=== PATIENT | female | born 1955 | race Hispanic/Latino ===

== ENCOUNTER 2018-04-30 08:14 | Outpatient (CLI) | payer OTHER | END 2018-04-30 08:15 | disposition home or self-care (01) | LOC: RAD 08:14 ==

== ENCOUNTER 2018-05-19 08:18 | Outpatient (CLI) | payer OTHER | END 2018-05-19 08:19 | disposition home or self-care (01) | LOC: LAB 08:18 | DX: Z00.00 Encounter for general adult medical examination without abnormal findings (principal) ==

== ENCOUNTER 2018-05-28 07:47 | Outpatient (CLI) | payer OTHER | END 2018-05-28 07:48 | disposition home or self-care (01) | LOC: RAD 07:47 ==

== ENCOUNTER 2018-06-04 08:19 | Outpatient (CLI) | payer OTHER | END 2018-06-04 08:20 | disposition home or self-care (01) | LOC: RAD 08:19 ==

== ENCOUNTER 2018-07-21 07:42 | Outpatient (CLI) | payer OTHER | END 2018-07-21 07:43 | disposition home or self-care (01) | LOC: PAT 07:42 ==

== ENCOUNTER 2018-07-21 07:48 | Outpatient (CLI) | payer OTHER | END 2018-07-21 07:49 | disposition home or self-care (01) | LOC: CARDIO 07:48 ==

== ENCOUNTER 2018-08-10 06:12 | Inpatient (IN) | payer OTHER, MEDICARE ==
[2018-07-21 08:36] VITALS: BMI 36.6
[2018-08-10] MEDS ORDERED: Vancomycin 1 g Inj ONE (07:19)
[2018-08-10] MEDS ORDERED: Bupivacaine 0.5% 50 ML IJ ONE (07:19)
[2018-08-10] MEDS ORDERED: Tranexamic Acid 1 ML ONE ×2 (07:39→10:44)
[2018-08-10] MEDS ORDERED: Propofol 10 mg/ml Inj (20 ML) ONE (07:41)
[2018-08-10] MEDS ORDERED: Midazolam 2 MG/2 ML VIAL ONE (07:41)
[2018-08-10] MEDS ORDERED: Rocuronium 10 mg/ml (5 ml) ONE (07:47)
[2018-08-10] MEDS ORDERED: Bupivacaine Liposomal Inj 20 ml ONE (09:36)
[2018-08-10] MEDS ORDERED: Sodium Chloride 0.9% 20 ML IV ONE (09:41)
[2018-08-10] MEDS ORDERED: EPINEPHrine 1:1000 Nasal Sol(30mL) ONE (09:41)
[2018-08-10] MEDS ORDERED: Morphine 4 mg/ml ISec ONE (10:11)
[2018-08-10] MEDS ORDERED: Neostigmine Methylsulfate 3mg/3ml Syringe IV ONE (10:28)
[2018-08-10] MEDS ORDERED: Bupivacaine/Epi 0.25%-1:200,000 10 ml PF inj IJ ONE ×2 (11:31→11:32)
[2018-08-10] MEDS ORDERED: HYDROmorphone 0.5 mg/0.5 ml ISec IVP PRN (11:44)
[2018-08-10] MEDS ORDERED: Lactated Ringer's 1,000 ML IV SCH (11:45)
--- NOTE | 2018-08-10 11:47 | PCM.ANESB7 ---
Adductor Canal Block - Adductor Canal Block Date of Procedure: 08/10/18 Anesthiologist: Ayanna Pre-Procedure Diagnosis: Right Osteoarthritis Post-Procedure Diagnosis: Right Osteoarthritis Procedure Performed: Adductor Canal Block Right - Procedure Adductor Canal Block: The procedure was explained to the patient that it is for the post-operative pain management. Consent was obtained after a thorough discussion with the patient regarding the benefits and possible complications of local anesthetic adductor canal block of the femoral nerve. Standard monitors, as defined by the ASA, were applied to the patient. Time-out was held with the circulating nurse to confirm the appropriate block. After applying supplemental oxygen and administering IV Sedation as needed, the patient was placed in supine position with and the operative leg was flexed slightly at the knee and externally rotated as needed, and was kept anatomically stable. The mid-thigh of the lower extremity was exposed. The ultrasound transducer was then applied transversely along the medial aspect, about midway down the thigh and the femoral artery and vein were identified in appropriate relation with the sartorius muscle. At this time, the femoral nerve was visualized lateral to the femoral artery within the canal. After thorough identification, this area area was prepped with Chloroprep solution three times and 1 % Lidocaine was injected subcutaneously for topical anesthesia. At this point, a #22 gauge Stimuplex 4-inch needle was inserted in-plane in a [id number] orientation, and advanced toward the femoral nerve. Advancement was performed carefully under direct ultrasound visualization.. After negative aspiration, _20_cc of __0.25% bupivicaine____was injected. Under ultrasound guidance the local anesthetics were observed spreading around the femoral nerve. The needle was removed intact and sterile dressing was applied. The patient had stable vital signs, was conscious and in no apparent distress.
--- NOTE | 2018-08-10 14:23 | CP.PCM.HP ---
<Wesley Grewal - Last Filed: 08/10/18 14:16> History of Present Illness - History of Present Illness History of Present Illness: Wesley Grewal, PGY-1, Internal Medicine History and Physical for Dr. Ace 63 year old female with past medical history of mediterranean anemia and osteoarthritis presents status post right total knee replacement. Dr. Harris wanted the patient to be admitted for observation and possible admission to TCU. Patient has had a history of severe osteoarthritis and had left total knee placement 12 years ago. Post procedure patient reports mild throbbing pain of right knee but denies headache, fever, chills, chest pain, heart palpitations, shortness of breath, nausea, vomiting, constipation, diarrhea, dysuria, hematuria. 12-point ROS was unremarkable except for what was mentioned above. PMH: as mentioned above PSH: left total knee replacement 12 years ago Allergies: percocet FMhx: Father: CHF SHx: occassional alcohol use, denies history of tobacco or recreational drug use PMD: [place] Home Medications: ibuprofen Present on Admission - Present on Admission Any Indicators Present on Admission: Yes Review of Systems - Review of Systems Review of Systems: except for what was mentioned in HPI Past Patient History - Infectious Disease Hx of Infectious Diseases: None - Past Social History Smoking Status: Never Smoked - CARDIAC Hx Pacemaker: No - PULMONARY Hx Respiratory Disorders: No - NEUROLOGICAL Hx Paralysis: No - HEENT Hx HEENT Problems: No - RENAL Hx Chronic Kidney Disease: No - ENDOCRINE/METABOLIC Hx Endocrine Disorders: No - HEMATOLOGICAL/ONCOLOGICAL Hx Blood Transfusions: No - INTEGUMENTARY Hx Dermatological Problems: No - MUSCULOSKELETAL/RHEUMATOLOGICAL Hx Musculoskeletal Disorders: Yes - GASTROINTESTINAL Hx Gastrointestinal Disorders: No - GENITOURINARY/GYNECOLOGICAL Hx Genitourinary Disorders: No - PSYCHIATRIC Hx Emotional Abuse: No Hx Physical Abuse: No Hx Substance Use: No - SURGICAL HISTORY Hx Surgeries: Yes - ANESTHESIA Hx Anesthesia Reactions: No Hx Malignant Hyperthermia: No Meds Allergies/Adverse Reactions: Allergies Allergy/AdvReac Type Severity Reaction Status Date / Time acetaminophen [From Percocet] AdvReac NAUSEA Verified 08/10/18 12:19 oxycodone HCl [From Percocet] AdvReac NAUSEA Verified 08/10/18 12:19 Physical Exam - Constitutional Appears: Well, Non-toxic, No Acute Distress - Head Exam Head Exam: ATRAUMATIC, NORMAL INSPECTION, NORMOCEPHALIC - Eye Exam Eye Exam: EOMI, PERRL - ENT Exam ENT Exam: Mucous Membranes Moist - Respiratory Exam Respiratory Exam: Clear to Auscultation Bilateral, NORMAL BREATHING PATTERN - Cardiovascular Exam Cardiovascular Exam: REGULAR RHYTHM, RRR, +S1, +S2. absent: Gallop, Rubs, Systolic Murmur - GI/Abdominal Exam GI & Abdominal Exam: Normal Bowel Sounds, Soft. absent: Distended, Tenderness - Extremities Exam Extremities exam: Positive for: pedal pulses present Additional comments: right lower extremity fully wrapped and difficult to evaluate. patient has full ROM of foot and toes on right lower extremity. Left appears to be without any cyanosis or deformities. ROM is intact. - Neurological Exam Neurological exam: Alert, CN II-XII Intact, Normal Gait, Oriented x3 - Psychiatric Exam Psychiatric exam: Normal Affect, Normal Mood - Skin Skin Exam: Dry, Intact, Normal Color Results - Vital Signs Recent Vital Signs: Last Vital Signs Temp 98.2 F 08/10/18 13:03 Pulse 84 08/10/18 13:03 Resp 20 08/10/18 13:03 BP 113/66 08/10/18 13:03 Pulse Ox 97 08/10/18 13:03 - Labs Labs: Laboratory Results - last 24 hr 08/10/18 06:35 Blood Type A POSITIVE Antibody Screen Negative BBK History Checked Patient has bt Assessment & Plan - Assessment and Plan (Free Text) Assessment: 63 year old female with past medical history of mediterranean anemia and osteoarthritis presents status post right total knee replacement. Plan: Status post right knee replacement for osteoarthritis -Started tylenol 975 Q8, codeine 30 Q4PRN, dilaudid 0.5 mg Q4PRN for pain -Emperic therapy via cefazolin 2 doses -Physical therapy has been consulted for further evaluation and disposition recommendations -Continue to apply ice to affected area, drain management, OOB with assistance -Vital signs Q4 -Dr. Harris, Orthopedic Surgery, consulted for further management. Constipation -Started docusate 1 tab QPM Mediterranean anemia -Started ferrous sulfate and folic acid -Will obtain morning CBC GI prophylaxis: pepcid DVT prophylaxis: lovenox Patient plan discussed with Dr. Ace. - Date & Time Date: 08/10/18 Time: 14:25 <Faith Ace R - Last Filed: 08/10/18 16:15> Results - Vital Signs Recent Vital Signs: Last Vital Signs Temp 98.2 F 08/10/18 13:03 Pulse 84 08/10/18 13:03 Resp 20 08/10/18 13:03 BP 113/66 08/10/18 13:03 Pulse Ox 97 08/10/18 13:03 - Labs Labs: Laboratory Results - last 24 hr 08/10/18 06:35 Blood Type A POSITIVE Antibody Screen Negative BBK History Checked Patient has bt Attending/Attestation - Attestation I have personally seen and examined this patient.: Yes I have fully participated in the care of the patient.: Yes I have reviewed all pertinent clinical information: Yes Notes (Text): Patient seen and examined by me with resident at approximately at 1PM on 08/10/18. Case including HPI, physical exam, and assessment and plan discussed with resident. Agree with above with following additions/corrections. Patient is a 63 year old female with past medical history significant for Mediterranean anemia and bilateral knee osteoarthritis that presented to the hospital for scheduled right knee replacement. Patient states that she had left knee replacement approximately 12 years ago. Patient states for approximately the past 2 years, she has been having worsening right knee pain. Patient states that she has been using a cane at home and ambulate. She has tried Aleve and Motrin for pain relief. Patient states that the pain is throbbing and sharp in nature and has worst is an 11 out of 10 on a pain scale 1-10. Patient is status post total right knee replacement. Patient states that she is feeling okay. She denies any current pain in her knee. She is able to wiggle her toes. She denies any numbness or tingling. Patient was able to tolerate liquids. She denies any flatus. No nausea, vomiting, or abdominal pain. No headaches or dizziness. No dysuria. No chest pain or shortness of breath. No fevers or chills. 12 point review of systems reviewed by me. Please see above HPI, all other systems are negative. Family history: Mother of unknown causes. Father and had history of CHF Physical exam: General: Awake and alert lying in bed in no acute distress HEENT: Normocephalic, atraumatic. Extraocular muscles intact. Pupils equal and reactive, no scleral icterus. Oropharynx pink and moist. No pharyngeal erythema or exudate appreciated. Neck supple. Cardiovascular: Regular rhythm. Normal S1 and S2. No murmurs, rubs, or gallops appreciated Pulmonary: Normal respiratory effort. No rhonchi, rales, or wheezing appreciated Gastrointestinal: Soft, Nontender. Nondistended. Positive bowel sounds all 4 quadrants. No guarding. Musculoskeletal: Moves all extremities. No calf tenderness. Right lower extremity with Rajendra wrap being that is clean, dry, and intact. Patient able to wiggle toes on her right and left foot. Central nervous system: AAO x3. No focal deficits appreciated. Dermatologic: Skin warm and dry. Assessment and plan: Patient is a 63 year old female with past medical history significant for Mediterranean anemia and bilateral knee osteoarthritis that presented to the hospital for scheduled right knee replacement. 1. Right knee osteoarthritis with uncontrolled pain. S/P total right knee replacement today. Continue pain management. Placed on Lovenox for DVT prophylaxis per orthopedics. Patient to complete 2 more doses of cefazolin per ortho. Placed on incentive spirometer. PT eval and treat. 2. History of anemia. CBC ordered. Patient placed on Feosol. Follow-up CBC in AM. 3. GI/DVT prophylaxis. Pepcid/Lovenox Case was discussed in detail with the patient regarding current diagnosis and treatment plan. All questions answered.
--- NOTE | 2018-08-10 14:37 | RAD ---
Date of service: 08/10/2018 PROCEDURE: Right knee HISTORY: s/p R TKA COMPARISON: TECHNIQUE: Two views portable FINDINGS: There is a right knee prosthesis in satisfactory alignment. There are no complicating factors. Surgical drain and clips are in place. IMPRESSION: As above
[2018-08-10] MEDS: ceFAZolin IV 2 gm in 50 mL D5W IVPB SCH ×2 (16:04→21:15)
[2018-08-10] MEDS ORDERED: Pneumococcal 23-Valent Vaccine IM ONE (16:49)
[2018-08-10] MEDS: Docusate-Senna 50 mg-8.6 mg Tab PO SCH (18:03)
--- NOTE | 2018-08-10 22:23 | OP ---
PROCEDURE DATE: 08/10/2018 PREOPERATIVE DIAGNOSIS: Osteoarthritis, right knee. This is a 63-year-old female, extensive osteoarthritis with varus deformity type 4. PROCEDURE: Biomet total knee replacement using a Vanguard system with medial posterior augment of 5 mm. SURGEON: Krishan Harris MD DUMP GRADER SURGEON: Dr. Gonzalo Kay. 1st was dr Bales The patient was explained the nature of total knee to get rid of the pain and the risk of infection, oozing, and DVT prophylaxis. DESCRIPTION OF PROCEDURE: The patient had general anesthesia via general endotracheal tube and prepped and draped in the right lower extremity. We made a parapatellar midline incision, and we put the tourniquet on 300 mmHg pressure going, entered above the patella medially, going down medial to tibial tubercle. Deep knife was used to go through the subcutaneous tissue. Parapatellar fascia was opened up at the medial side from the vastus medialis obliquus tendon just medial to the tibial tubercle. The joint was entered. We irrigated out the joint and took out the synovium as much as we could took out the meniscus carefully protecting the medial collateral ligament and lateral collateral ligament and took out the bunch of osteophytes that were inside the knee and in the periphery. Once we did this, we could flex the knee a little more and put in the intramedullary alignment check for the femur, resecting the distal 8 mm of bone which corresponds to the thickness of the prosthesis. After this was gently resected anteriorly and posteriorly and just giving her 5 degrees of valgus and no flexion, we did the chamfering and we resected the surface of the tibial plateau 2 mm below the most involved side which was the medial side and took out a bunch of osteophytes on the tibial surface and in periphery and the two large osteophytes in the joint laterally. So then we measured at distance of the flexion gap that end up being 16 mm and the femoral component was 16 mm and the tibial plate was 71 mm. We had to have an augment of 5 mm on the posteromedial surface because the bone was extremely osteopenic as for the last several years, she has been in a wheelchair, not putting weight on the arthritic knee that was bothering her and in doing so, the bone became extremely osteopenic and soft and was compressed unduly on the posterior medial surface of the tibia that required augmenting the femoral components. Once the trial reduction was done, it was stable with the tibial insert of 16 mm and a tray that was 71 mm and then we did the lateralized and undersized component to avoid too much tension on the MCL. As it was, the medial and lateral ligaments were stable with just 2 or 3 mm opening on either side and the patella was replaced on the articular surface by excising approximately 8 mm of the patellar surface because of this. So all the components were cemented in the tibia, femur, and patella. The tourniquet was deflated. Bleeding was controlled with electrocautery, a Hemovac put in, and we also used a Prevena device to decrease the accumulation of blood in the knee and it would be automatic suction device. The patient was placed in compression dressing. Tourniquet was taken down before wound closure. The fascia was closed with #2 Vicryl, subcutaneous with 2-0 Vicryl, skin with combination of stainless steel terrell, and 2-0 nylon interrupted. Krishan Harris DO [facility]ITAL[facility]as[facility]
[2018-08-10] MEDS: HYDROmorphone 0.5 mg/0.5 ml ISec IVP PRN (23:43)
[2018-08-11] MEDS: HYDROmorphone 0.5 mg/0.5 ml ISec IVP PRN ×5 (03:31→21:39)
[2018-08-11 06:45] LABS: BASO # 0.03 K/mm3 (0.0-2.0); BASO % 0.3 % (0.0-3.0); EOS # 0.1 (0.0-0.7); EOS % 0.5 % (1.5-5.0); HEMOGLOBIN 9.6 g/dL (12.0-16.0); LYMPH % 8.8 % (22.0-35.0); MEAN CELL VOLUME 64.9 fl (80.0-105.0); MEAN CORPUSCULAR HEMOGLOBIN 19.3 pg (25.0-35.0); MEAN CORPUSCULAR HGB CONC 29.7 g/dl (31.0-37.0); MEAN PLATELET VOLUME 9.1 fl (7.0-11.0); MONO # 1.5 (0.1-0.6); MONO % 14.2 % (1.0-6.0); RBC 4.98 10^6/uL (3.5-6.1); RED CELL DISTRIBUTION WIDTH 15.5 % (11.5-14.5); WHITE BLOOD COUNT 10.8 10^3/uL (4.5-11.0)
[2018-08-11 07:20] LABS: ALB/GLOB RATIO 1.1 (1.1-1.8); ALBUMIN 3.3 g/dL (3.0-4.8); ALT/SGPT 14 U/L (7-56); AST/SGOT 21 U/L (14-36); BLOOD UREA NITROGEN 16 mg/dL (7-21); CALCIUM 8.4 mg/dL (8.4-10.5); GFR NON-AFRICAN AMERICAN > 60
[2018-08-11] MEDS ORDERED: Sodium Chloride 0.9% 1,000 ML IV SCH (07:45)
[2018-08-11] MEDS ORDERED: Enoxaparin 40 mg Syringe SC SCH (10:00)
--- NOTE | 2018-08-11 13:40 | CP.PCM.PN ---
<Wesley Grewal - Last Filed: 08/11/18 13:33> Subjective - Date & Time of Evaluation Date of Evaluation: 08/11/18 Time of Evaluation: 13:33 - Subjective Subjective: Wesley Grewal, PGY-1, Internal Medicine Progress Note for Dr. Ace Patient seen and evaluated at bedside. Patient had temperature of 100.2 overnight. Patient reports throbbing and pain of right knee but denies any other symptoms including chest pain, shortness of breath, nausea, vomiting, constipation, diarrhea, dysuria, hematuria. 12-point ROS was unremarkable except for what was mentioned above. Objective - Vital Signs/Intake and Output Vital Signs (last 24 hours): Temp Pulse Resp BP Pulse Ox 100.2 F H 90 16 115/72 87 L 08/11/18 06:00 08/11/18 06:00 08/11/18 06:00 08/11/18 06:00 08/11/18 06:00 Intake and Output: 08/11/18 08/11/18 06:59 18:59 Intake Total 660 Output Total 870 Balance -210 - Medications Medications: Current Medications Acetaminophen (Tylenol 325mg Tab) 975 mg PO Q8H [facility] Last Admin: 08/11/18 05:11 Dose: 975 mg Aspirin (Aspirin Chewable) 81 mg PO DAILY [facility] Last Admin: 08/11/18 09:55 Dose: 81 mg Codeine Sulfate (Codeine) 30 mg PO Q4 PRN PRN Reason: Pain, moderate (4-7) Last Admin: 08/11/18 09:53 Dose: 30 mg Famotidine (Pepcid) 20 mg PO 1000,2200 [facility] Last Admin: 08/11/18 09:55 Dose: 20 mg Ferrous Sulfate (Feosol) 324 mg PO BID [facility] Last Admin: 08/11/18 09:55 Dose: 324 mg Folic Acid (Folic Acid) 1 mg PO DAILY [facility] Hydromorphone HCl (Dilaudid) 0.5 mg IVP Q4H PRN PRN Reason: Pain Last Admin: 08/11/18 11:51 Dose: 0.5 mg Cefazolin Sodium/Dextrose (Ancef Iv 2 Gm Duplex) 2 gm in 50 mls @ 50 mls/hr IVPB 1600,2201 [facility] Last Admin: 04/23/19 21:15 Dose: 50 mls/hr Sodium Chloride (Sodium Chloride 0.9%) 1,000 mls @ 100 mls/hr IV .Q10H [facility] Stop: 08/11/18 17:44 Senna/Docusate Sodium (Senokot S 50 Mg-8.6 Mg) 1 tab PO QPM [facility] Last Admin: 08/10/18 18:03 Dose: 1 tab - Labs Labs: 08/11/18 06:00 08/11/18 06:00 - Constitutional Appears: Well, Non-toxic, No Acute Distress - Head Exam Head Exam: ATRAUMATIC, NORMAL INSPECTION, NORMOCEPHALIC - Eye Exam Eye Exam: EOMI, PERRL - ENT Exam ENT Exam: Mucous Membranes Moist - Respiratory Exam Respiratory Exam: Clear to Auscultation Bilateral, NORMAL BREATHING PATTERN - Cardiovascular Exam Cardiovascular Exam: REGULAR RHYTHM, RRR, +S1, +S2. absent: Gallop, Rubs, Systolic Murmur - GI/Abdominal Exam GI & Abdominal Exam: Normal Bowel Sounds, Soft. absent: Distended, Tenderness - Extremities Exam Extremities exam: Positive for: pedal pulses present Additional comments: right lower extremity fully wrapped and difficult to evaluate. patient has full ROM of foot and toes on right lower extremity. Left appears to be without any cyanosis or deformities. ROM is intact. - Neurological Exam Neurological exam: Alert, CN II-XII Intact, Normal Gait, Oriented x3 - Psychiatric Exam Psychiatric exam: Normal Affect, Normal Mood - Skin Skin Exam: Dry, Intact, Normal Color Assessment and Plan - Assessment and Plan (Free Text) Assessment: 63 year old female with past medical history of mediterranean anemia and osteoarthritis presents status post right total knee replacement. Plan: Status post right knee replacement for osteoarthritis -Continue tylenol 975 Q8, codeine 30 Q4PRN, dilaudid 0.5 mg Q4PRN for pain -Continue emperic therapy via cefazolin -Continue to apply ice to affected area, drain management, OOB with assistance -Vital signs Q4 -Dr. Harris, Orthopedic Surgery, consulted for further management. Transient hypotension -BP was 96/61 last night with baseline of 110s/70s. -Likely 2/2 to pain medication vs. noctural dipping -Continue to monitor Constipation -Continue docusate 1 tab QPM Mediterranean anemia -Continue ferrous sulfate and folic acid -Patient's hemoglobin today was in the 9s GI prophylaxis: pepcid DVT prophylaxis: lovenox Disposition: PT recommend acute rehabilitation. MD and patient prefer TCU. Will follow up social work for further discharge disposition. Patient plan discussed with Dr. Ace. <Faith Ace R - Last Filed: 08/12/18 15:18> Objective - Vital Signs/Intake and Output Vital Signs (last 24 hours): Temp Pulse Resp BP Pulse Ox 100.7 F H 107 H 18 118/77 94 L 08/12/18 14:00 08/12/18 14:00 08/12/18 14:00 08/12/18 14:00 08/12/18 14:00 Intake and Output: 08/12/18 08/12/18 06:59 18:59 Intake Total 720 Output Total 145 Balance 575 - Medications Medications: Current Medications Acetaminophen (Tylenol 325mg Tab) 650 mg PO Q6H PRN PRN Reason: Fever >100.4 F or mild pain Aspirin (Aspirin Chewable) 81 mg PO DAILY [facility] Last Admin: 08/12/18 10:02 Dose: 81 mg Codeine Sulfate (Codeine) 30 mg PO Q4 PRN PRN Reason: Pain, moderate (4-7) Last Admin: 08/12/18 15:16 Dose: 30 mg Famotidine (Pepcid) 20 mg PO 1000,2200 [facility] Last Admin: 08/12/18 10:02 Dose: 20 mg Ferrous Sulfate (Feosol) 324 mg PO BID [facility] Last Admin: 08/12/18 10:02 Dose: 324 mg Folic Acid (Folic Acid) 1 mg PO DAILY [facility] Last Admin: 08/12/18 10:02 Dose: 1 mg Senna/Docusate Sodium (Senokot S 50 Mg-8.6 Mg) 1 tab PO QPM [facility] Last Admin: 08/11/18 16:19 Dose: 1 tab - Labs Labs: 08/12/18 06:40 08/12/18 06:40 Attending/Attestation - Attestation I have personally seen and examined this patient.: Yes I have fully participated in the care of the patient.: Yes I have reviewed all pertinent clinical information, including history, physical exam and plan: Yes Notes (Text): Patient seen and examined by me with resident at approximately at 11AM on 08/11/18. Case including HPI, physical exam, and assessment and plan discussed with resident. Agree with above with following additions/corrections. Patient is a 63 year old female with past medical history significant for Mediterranean anemia and bilateral knee osteoarthritis that presented to the hospital for scheduled right knee replacement. Patient states she is feeling ok. Patient working with physical therapy. States she is having "sharp and throbbing" pain in he right knee. Pain medications are helping. Patient is able to bend her knee a little. Patient states she is also having flatus. No nausea, vomiting, or abdominal pain. No fevers or chills. No headaches or dizziness. No chest pain or palpitations. Physical exam: General: Awake and alert lying in bed in no acute distress HEENT: Normocephalic, atraumatic. Extraocular muscles intact. Pupils equal and reactive, no scleral icterus. Oropharynx pink and moist. No pharyngeal erythema or exudate appreciated. Neck supple. Cardiovascular: Regular rhythm. Normal S1 and S2. No murmurs, rubs, or gallops appreciated Pulmonary: Normal respiratory effort. No rhonchi, rales, or wheezing appreciated Gastrointestinal: Soft, Nontender. Nondistended. Positive bowel sounds all 4 quadrants. No guarding. Musculoskeletal: Moves all extremities. No calf tenderness. Right lower extremity with Rajendra wrap that is clean, dry, and intact. Drain in place. Central nervous system: AAO x3. No focal deficits appreciated. Dermatologic: Skin warm and dry. Assessment and plan: Patient is a 63 year old female with past medical history significant for Mediterranean anemia and bilateral knee osteoarthritis that presented to the hospital for scheduled right knee replacement. 1. Right knee osteoarthritis with uncontrolled pain. S/P total right knee replacement 08/10/18. Continue pain management. ASA 81mg for DVT prophylaxis per orthopedics. Continue incentive spirometer. Continue physical therapy. TCU pending 2. History of anemia. Now with some acute blood loss. Will continue to monitor H&H. Continue Feosol. 3. GI/DVT prophylaxis. Pepcid/ASA Case was discussed in detail with the patient regarding current diagnosis and treatment plan. All questions answered.
[2018-08-11] MEDS: ceFAZolin IV 2 gm in 50 mL D5W IVPB SCH ×2 (16:12→22:16)
[2018-08-11] MEDS: Docusate-Senna 50 mg-8.6 mg Tab PO SCH (16:19)
--- NOTE | 2018-08-11 18:43 | PN ---
DATE: 08/11/2018 UPDATED REPORT SUBJECTIVE: The patient underwent a right total knee replacement yesterday on 08/10/2018. She is doing well. Hemovac output since this morning, it is approximately 8 hours later is 200 mL, which was expected. Once it starts getting less we could take the Hemovac out as she does have a VAC dressing, Prevena to help suck the wound dry from the incisional drain. Her pain is significant but not undue. She can extend the knee and flex it. I told her to keep it extended as much as possible and do quadriceps and mild nonresist to straight leg raising exercise and she is allowed to ambulate with a walker, weightbearing to tolerance. We will change her dressing in a couple of days when more of the swelling goes down. Otherwise, she is doing well and she plans go to TCU for rehab in the hospital and to go home. Krishan Harris DO
[2018-08-11 23:02] VITALS: O2SAT 94
[2018-08-12] MEDS: HYDROmorphone 0.5 mg/0.5 ml ISec IVP PRN ×2 (04:04→10:17)
[2018-08-12 07:08] LABS: BASO # 0.02 K/mm3 (0.0-2.0); BASO % 0.2 % (0.0-3.0); EOS % 0.2 % (1.5-5.0); HEMOGLOBIN 9.7 g/dL (12.0-16.0); LYMPH # 1.1 (1.2-3.4); LYMPH % 9.9 % (22.0-35.0); MEAN CELL VOLUME 65.1 fl (80.0-105.0); MEAN CORPUSCULAR HEMOGLOBIN 19.5 pg (25.0-35.0); MEAN CORPUSCULAR HGB CONC 29.9 g/dl (31.0-37.0); MEAN PLATELET VOLUME 9.1 fl (7.0-11.0); MONO # 1.9 (0.1-0.6); MONO % 17.4 % (1.0-6.0); RBC 4.98 10^6/uL (3.5-6.1); RED CELL DISTRIBUTION WIDTH 15.3 % (11.5-14.5); WHITE BLOOD COUNT 11.1 10^3/uL (4.5-11.0)
[2018-08-12 07:27] VITALS: RESP 18
[2018-08-12 07:34] LABS: ALB/GLOB RATIO 1.1 (1.1-1.8); ALBUMIN 3.3 g/dL (3.0-4.8); ALT/SGPT 11 U/L (7-56); AST/SGOT 19 U/L (14-36); BLOOD UREA NITROGEN 14 mg/dL (7-21); CALCIUM 8.8 mg/dL (8.4-10.5); GFR NON-AFRICAN AMERICAN > 60
--- NOTE | 2018-08-12 12:39 | RAD ---
Date of service: 08/12/2018 HISTORY: Pneumonia suspected. COMPARISON: No prior. FINDINGS: LUNGS: No active pulmonary disease. Low lung volumes, poor inspiratory effort. PLEURA: No significant pleural effusion identified, no pneumothorax apparent. CARDIOVASCULAR: No atherosclerotic calcification present Cardiomegaly. No evidence of acute, significant cardiovascular disease. OSSEOUS STRUCTURES: No significant abnormalities. VISUALIZED UPPER ABDOMEN: Normal. OTHER FINDINGS: None. IMPRESSION: No active pulmonary disease. No significant interval change compared to the prior examination(s).
--- NOTE | 2018-08-12 14:22 | CP.PCM.DIS ---
<HarshaljulianneWesley - Last Filed: 08/12/18 14:16> Provider - Provider Date of Admission: 08/10/18 11:38 Attending physician: Faith Ace DO Primary care physician: Silviano Kerr MD Consults: 08/10/18 11:20 Case Management Referral Routine Comment: Physician Instructions: evaluate for TCU Reason For Exam: Reason for Referral: Discharge Planning 08/10/18 11:40 Orthopedic Consult Routine Comment: Consulting Provider: Krishan Harris Consulting Physician: Krishan Harris Reason for Consult: orthopedic postsop mgmt 08/10/18 16:49 Nursing Referral for Wound Care Routine Comment: POST R TOTAL KNEE REPLACED Physician Instructions: Reason For Exam: EVALUATION 08/11/18 15:11 TRCU [Evaluation for TRCU] Routine Comment: Physician Instructions: Reason For Exam: S/P TKR DENIED BY ACUTE REHAB Time Spent in preparation of Discharge (in minutes): 60 Hospital Course - Lab Results Lab Results: Most Recent Lab Values WBC 11.1 10^3/uL (4.5-11.0) H 08/12/18 06:40 RBC 4.98 10^6/uL (3.5-6.1) 08/12/18 06:40 Hgb 9.7 g/dL (12.0-16.0) L 08/12/18 06:40 Hct 32.4 % (36.0-48.0) L 08/12/18 06:40 MCV 65.1 fl (80.0-105.0) L 08/12/18 06:40 MCH 19.5 pg (25.0-35.0) L 08/12/18 06:40 MCHC 29.9 g/dl (31.0-37.0) L 08/12/18 06:40 RDW 15.3 % (11.5-14.5) H 08/12/18 06:40 Plt Count 211 10^3/uL (120.0-450.0) 08/12/18 06:40 MPV 9.1 fl (7.0-11.0) 08/12/18 06:40 Neut % (Auto) 72.3 % (50.0-68.0) H 08/12/18 06:40 Lymph % (Auto) 9.9 % (22.0-35.0) L 08/12/18 06:40 Appling % (Auto) 17.4 % (1.0-6.0) H 08/12/18 06:40 Eos % (Auto) 0.2 % (1.5-5.0) L 08/12/18 06:40 Baso % (Auto) 0.2 % (0.0-3.0) 08/12/18 06:40 Lymph # (Auto) 1.1 (1.2-3.4) L 08/12/18 06:40 Appling # (Auto) 1.9 (0.1-0.6) H 08/12/18 06:40 Eos # (Auto) 0.0 (0.0-0.7) 08/12/18 06:40 Baso # (Auto) 0.02 K/mm3 (0.0-2.0) 08/12/18 06:40 Absolute Neuts (auto) 8.04 (1.4-6.5) H 08/12/18 06:40 Sodium 135 mmol/L (132-148) 08/12/18 06:40 Potassium 4.0 mmol/L (3.6-5.0) 08/12/18 06:40 Chloride 101 mmol/L (98-107) 08/12/18 06:40 Carbon Dioxide 29 mmol/L (21-33) 08/12/18 06:40 Anion Gap 9 (10-20) L 08/12/18 06:40 BUN 14 mg/dL (7-21) 08/12/18 06:40 Creatinine 0.5 mg/dl (0.7-1.2) L 08/12/18 06:40 Est GFR ( Amer) > 60 08/12/18 06:40 Est GFR (Non-Af Amer) > 60 08/12/18 06:40 Random Glucose 123 mg/dL (70-110) H 08/12/18 06:40 Calcium 8.8 mg/dL (8.4-10.5) 08/12/18 06:40 Phosphorus 2.9 mg/dL (2.5-4.5) 08/12/18 06:40 Magnesium 1.8 mg/dL (1.7-2.2) 08/12/18 06:40 Total Bilirubin 0.8 mg/dL (0.2-1.3) 08/12/18 06:40 AST 19 U/L (14-36) 08/12/18 06:40 ALT 11 U/L (7-56) 08/12/18 06:40 Alkaline Phosphatase 63 U/L (38-126) 08/12/18 06:40 Total Protein 6.5 g/dL (5.8-8.3) 08/12/18 06:40 Albumin 3.3 g/dL (3.0-4.8) 08/12/18 06:40 Globulin 3.1 gm/dL 08/12/18 06:40 Albumin/Globulin Ratio 1.1 (1.1-1.8) 08/12/18 06:40 Blood Type A POSITIVE 08/10/18 06:35 Antibody Screen Negative 08/10/18 06:35 BBK History Checked Patient has bt 08/10/18 06:35 - Hospital Course Hospital Course: Wesley Grewal, PGY-1, Internal Medicine Discharge Summary for Dr. Ace 63 year old female with past medical history of mediterranean anemia and osteoarthritis presented status post right total knee replacement. Dr. Harris wanted the patient to be admitted for observation and possible admission to TCU. Patient has had a history of severe osteoarthritis and had left total knee placement 12 years ago. Post procedure patient reported mild throbbing pain of right knee but denied any other symptoms. Patient was started on tylenol 975 mg Q8, codeine 30 Q4PRN, and dilaudid Q4PRN for pain. She was started on emperic cefazolin therapy post surgery. In addition, she had ice applied to affected area, had drain management, and was allowed out of bed with assistance. Blood pressure two night ago reduced to 90s over 60s. Reduction in blood pressure was likely secondary to pain medication vs. nocturnal dipping. Overnight, patient had 100.9 temperature which has now reduced to 98.5. She has been having increased temperature overnight the past 2 days. Chest X ray was performed to rule out common sources of infection. Pneumonia was ruled out as sources of infection. We are still awaiting UA and blood culture. We will follow up UA and blood culture in TCU. For constipation, patient was given docusate. Patient has been passing gas and had her first bowel movement today. Patient was continued on ferrous sulfate and folic acid for chronic mediterranean anemia. Dr. Harris and patient preferred patient to go to TCU for rehabilitation. Patient was denied by [facility] as she does not have acute rehabilitation diagnosis. Patient was accepted to TCU subsequently. Patient was found to be stable and ready for discharge to TCU. Patient was told to take all medications as she was taking at the hospital. Patient was told to follow up with Dr. Kerr, her PCP, within 3 to 5 days of discharge from TCU. She was told to follow up with Dr. Harris, Orthopedic surgeon, within 1 week of discharge from TCU. As per Orthopedic Surgery, patient was instructed to continue all medications at TCU except for cefazolin and dilaudid. Patient was told to return to the emergency department if she had any new or concerning symptoms. Discharge Diagnoses Status post right knee replacement for osteoarthritis Transient hypotension Constipation Mediterranean Anemia - Date & Time of H&P Date of H&P: 08/10/18 Time of H&P: 14:16 Discharge Exam - Head Exam Head Exam: ATRAUMATIC, NORMAL INSPECTION, NORMOCEPHALIC Discharge Plan - Discharge Medications Prescriptions: Acetaminophen [Tylenol] 650 mg PO Q6H PRN #15 capsule PRN Reason: Fever >100.4 F or mild pain - Follow Up Plan Condition: GOOD Disposition: REHAB FACILITY/REHAB UNIT Instructions: Preventing Falls, Knee Arthroscopy Additional Instructions: 1. Please follow up with your Dr. Kerr, your primary care doctor, within 3-5 days after you are discharged from the transitional care unit. 2. Please follow up with Dr. Harris, your orthopedic surgeon, within 1 week after being discharged from the transitional care unit. 3. Please continue all medications at transitional care unit as prescribed. 4. Please return to the emergency department if you have any new or concerning symptoms. Referrals: Krishan Harris DO [Staff Provider] - Silviano Kerr MD [Primary Care Provider] - <Faith Ace - Last Filed: 08/12/18 17:23> Provider - Provider Date of Admission: 08/10/18 11:38 Attending physician: Faith Ace DO Primary care physician: Silviano Kerr MD Consults: 08/10/18 11:20 Case Management Referral Routine Comment: Physician Instructions: evaluate for TCU Reason For Exam: Reason for Referral: Discharge Planning 08/10/18 11:40 Orthopedic Consult Routine Comment: Consulting Provider: Krishan Harris Consulting Physician: Krishan Harris Reason for Consult: orthopedic postsop mgmt 08/10/18 16:49 Nursing Referral for Wound Care Routine Comment: POST R TOTAL KNEE REPLACED Physician Instructions: Reason For Exam: EVALUATION 08/11/18 15:11 TRCU [Evaluation for TRCU] Routine Comment: Physician Instructions: Reason For Exam: S/P TKR DENIED BY ACUTE REHAB Hospital Course - Lab Results Lab Results: Most Recent Lab Values WBC 11.1 10^3/uL (4.5-11.0) H 08/12/18 06:40 RBC 4.98 10^6/uL (3.5-6.1) 08/12/18 06:40 Hgb 9.7 g/dL (12.0-16.0) L 08/12/18 06:40 Hct 32.4 % (36.0-48.0) L 08/12/18 06:40 MCV 65.1 fl (80.0-105.0) L 08/12/18 06:40 MCH 19.5 pg (25.0-35.0) L 08/12/18 06:40 MCHC 29.9 g/dl (31.0-37.0) L 08/12/18 06:40 RDW 15.3 % (11.5-14.5) H 08/12/18 06:40 Plt Count 211 10^3/uL (120.0-450.0) 08/12/18 06:40 MPV 9.1 fl (7.0-11.0) 08/12/18 06:40 Neut % (Auto) 72.3 % (50.0-68.0) H 08/12/18 06:40 Lymph % (Auto) 9.9 % (22.0-35.0) L 08/12/18 06:40 Appling % (Auto) 17.4 % (1.0-6.0) H 08/12/18 06:40 Eos % (Auto) 0.2 % (1.5-5.0) L 08/12/18 06:40 Baso % (Auto) 0.2 % (0.0-3.0) 08/12/18 06:40 Lymph # (Auto) 1.1 (1.2-3.4) L 08/12/18 06:40 Appling # (Auto) 1.9 (0.1-0.6) H 08/12/18 06:40 Eos # (Auto) 0.0 (0.0-0.7) 08/12/18 06:40 Baso # (Auto) 0.02 K/mm3 (0.0-2.0) 08/12/18 06:40 Absolute Neuts (auto) 8.04 (1.4-6.5) H 08/12/18 06:40 Sodium 135 mmol/L (132-148) 08/12/18 06:40 Potassium 4.0 mmol/L (3.6-5.0) 08/12/18 06:40 Chloride 101 mmol/L (98-107) 08/12/18 06:40 Carbon Dioxide 29 mmol/L (21-33) 08/12/18 06:40 Anion Gap 9 (10-20) L 08/12/18 06:40 BUN 14 mg/dL (7-21) 08/12/18 06:40 Creatinine 0.5 mg/dl (0.7-1.2) L 08/12/18 06:40 Est GFR ( Amer) > 60 08/12/18 06:40 Est GFR (Non-Af Amer) > 60 08/12/18 06:40 Random Glucose 123 mg/dL (70-110) H 08/12/18 06:40 Calcium 8.8 mg/dL (8.4-10.5) 08/12/18 06:40 Phosphorus 2.9 mg/dL (2.5-4.5) 08/12/18 06:40 Magnesium 1.8 mg/dL (1.7-2.2) 08/12/18 06:40 Total Bilirubin 0.8 mg/dL (0.2-1.3) 08/12/18 06:40 AST 19 U/L (14-36) 08/12/18 06:40 ALT 11 U/L (7-56) 08/12/18 06:40 Alkaline Phosphatase 63 U/L (38-126) 08/12/18 06:40 Total Protein 6.5 g/dL (5.8-8.3) 08/12/18 06:40 Albumin 3.3 g/dL (3.0-4.8) 08/12/18 06:40 Globulin 3.1 gm/dL 08/12/18 06:40 Albumin/Globulin Ratio 1.1 (1.1-1.8) 08/12/18 06:40 Urine Color Dark yellow (YELLOW) 08/12/18 16:00 Urine Appearance Sl cloudy (CLEAR) 08/12/18 16:00 Urine pH 6.0 (4.7-8.0) 08/12/18 16:00 Ur Specific Myra >= 1.030 (1.005-1.035) 08/12/18 16:00 Urine Protein 30 mg/dL (<30 mg/dL) H 08/12/18 16:00 Urine Glucose (UA) Negative mg/dL (NEGATIVE) 08/12/18 16:00 Urine Ketones Trace mg/dL (NEGATIVE) H 08/12/18 16:00 Urine Blood Large (NEGATIVE) H 08/12/18 16:00 Urine Nitrate Negative (NEGATIVE) 08/12/18 16:00 Urine Bilirubin Negative (NEGATIVE) 08/12/18 16:00 Urine Urobilinogen 1.0 E.U./dL (<1 E.U./dL) H 08/12/18 16:00 Ur Leukocyte Esterase Negative Desirae/uL (NEGATIVE) 08/12/18 16:00 Urine RBC 25 - 30 /hpf (0-2) H 08/12/18 16:00 Urine WBC 1 - 3 /hpf (0-6) 08/12/18 16:00 Ur Epithelial Cells 6 - 8 /hpf (0-5) H 08/12/18 16:00 Amorphous Sediment Few /hpf (NONE) 08/12/18 16:00 Urine Bacteria Many /hpf (NONE) 08/12/18 16:00 Urine Other Uyeast /hpf 08/12/18 16:00 Blood Type A POSITIVE 08/10/18 06:35 Antibody Screen Negative 08/10/18 06:35 BBK History Checked Patient has bt 08/10/18 06:35 Attending/Attestation - Attestation I have personally seen and examined this patient.: Yes I have fully participated in the care of the patient.: Yes I have reviewed all pertinent clinical information, including history, physical exam and plan: Yes Notes (Text): Please note this DC summary is for 08/12/18 Patient seen and examined by me with resident at approximately 10:45AM and prior to discharge on 08/12/18. Case including discharge plan discussed with resident. Agree with above with following additions/corrections. Patient is a 63 year old female with past medical history significant for Mediterranean anemia and bilateral knee osteoarthritis that presented to the hospital for scheduled right knee replacement. Please see H&P for full details. Patient has total right knee replaced for right knee osteoarthritis and uncontrolled right knee pain. Patient was also found to have a history of anemia. Patient was managed with Dilaudid and codeine for pain management. Patient was initially placed on Lovenox for DVT prophylaxis and was switched to aspirin 81 mg per orthopedic surgeon. Patient was also treated with cefazolin. Patient was placed on incentive spirometer. She was also seen and evaluated by physical therapy. TCU was recommended. Patient was also placed on Feosol for history of anemia with acute blood loss secondary to surgery. H&H was monitored. Hemoglobin was 9.6 then 9.7. Patient also had an episode hypotension likely secondary to pain medications which resolved. Patient is also found to have a fever. Chest x-ray, urinalysis, blood and urine cultures are ordered. This will be monitored and followed up in the TCU. Patient was cleared for discharge by orthopedic surgeon and patient was discharged to the TCU. On day of discharge, patient stated she was feeling ok. Stated she had a rough night secondary to throbbing pain in her right knee. She stated that pain medications were helping. Patient denied shortness of breath. Patient denied any chest pain or palpitations. No nausea, vomiting, or abdominal pain. Patient was tolerating diet well. No headaches or dizziness. No fevers or chills. No dysuria or burning with urination. Patient did have a bowel movement. Physical exam: General: Awake and alert lying in bed in no acute distress HEENT: Normocephalic, atraumatic. Extraocular muscles intact. Pupils equal and reactive, no scleral icterus. Oropharynx pink and moist. No pharyngeal erythema or exudate appreciated. Neck supple. Cardiovascular: Regular rhythm. Normal S1 and S2. No murmurs, rubs, or gallops appreciated Pulmonary: Normal respiratory effort. No rhonchi, rales, or wheezing appreciated Gastrointestinal: Soft, Nontender. Nondistended. Positive bowel sounds all 4 quadrants. No guarding. Musculoskeletal: Moves all extremities. No calf tenderness. Right lower extremity with Rajendra wrap being that is clean, dry, and intact. Drain in place. Central nervous system: AAO x3. No focal deficits appreciated. Dermatologic: Skin warm and dry. Please see chart for full details. Follow up instructions: Patient to follow-up with primary care doctor within 3-5 days of discharge from TCU. Patient to follow up with orthopedic surgeon within one week of discharge from TCU. All instructions explained to the patient in detail. Patient both understands and agrees to all instructions. Written instructions also given. Time spent in discharging the patient including chart review, medication reconciliation, discussion with the patient, medical collector, consultants, and nursing staff was approximately 40 minutes.
[2018-08-12 15:05] VITALS: BP 118/77; PULSE 107; TEMP 100.7
[2018-08-12 16:06] LABS: URINE BILIRUBIN NEGATIVE (NEGATIVE); URINE BLOOD LARGE (NEGATIVE); URINE GLUCOSE (UA) NEGATIVE (NEGATIVE); URINE LEUKOCYTE ESTERASE NEGATIVE Leu/uL (NEGATIVE); URINE PROTEIN 30 mg/dL (<30 mg/dL)
[2018-08-12 16:08] LABS: URINE APPEARANCE SL CLOUDY (CLEAR); URINE COLOR DARK YELLOW (YELLOW)
[2018-08-12 16:35] LABS: URINE AMORPHOUS SEDIMENT FEW /hpf; URINE BACTERIA MANY /hpf; URINE RBC 25 - 30 /hpf (0-2)
== END 2018-08-12 16:22 | DRG 470 ==
LOC: SDS 06:12 → ERH 11:38 → 5RNO 13:24
PROVIDERS: ADMIT Internal Medicine; ATTEND Hospitalist
PROC: 3E0T3BZ Introduction of Anesthetic Agent into Peripheral Nerves and Plexi, Percutaneous Approach (ICD-10-PCS; 2018-08-10)
PROC: 0SRC0J9 Replacement of Right Knee Joint with Synthetic Substitute, Cemented, Open Approach (ICD-10-PCS; principal; 2018-08-10 07:30)
DX: M17.11 Unilateral primary osteoarthritis, right knee (principal); D62 Acute posthemorrhagic anemia; D56.9 Thalassemia, unspecified; K59.00 Constipation, unspecified; Z96.652 Presence of left artificial knee joint; Z82.49 Family history of ischemic heart disease and other diseases of the circulatory system

== ENCOUNTER 2018-08-12 16:26 | Inpatient (IN) | payer OTHER ==
[2018-07-21 14:13] VITALS: BMI 36.6
[2018-08-12] MEDS ORDERED: cefTRIAXone 1 gm 1 GM/100 ML BAG IVPB SCH (17:15)
[2018-08-12] MEDS: Docusate-Senna 50 mg-8.6 mg Tab PO SCH (18:02)
--- NOTE | 2018-08-12 23:33 | CON ---
DATE: 08/12/2018 LOCATION: Patient is in TCU floor, room 302. HOSPITAL COURSE: Patient is a 63-year-old female who underwent a total hip replacement for her right knee on 08/10/2018. She has no complaints of pain. The surgery went well. She has not had any blood yet. Her hemoglobin was 9.6, two days ago. We will plan on taking the Hemovac out tonight. She is on the wound vac machine to help the wound heal in a state that does not have much subcutaneous hematoma. She is straightening out the knee, active flexion is 38 degrees. We will encourage straight leg raising and ambulation, weightbearing to tolerance at her right knee. She had been on the wheelchair for almost a year and a half before surgery so her bones were very osteopenic and osteoporotic. So, we have to get calcium back in the bone by weightbearing on that right knee. When the swelling goes down more we will start more aggressive range of motion, but first we have to get the swelling down. I took the Hemovac out today. Today, the blood is starting to separate into serous and sanguineous different exudate and so we will take that out. It is only less than 50 mL for the last 12 hours. So, we will start therapy. I took the Hemovac out, a new dressing, and the wound Vac is still functioning. I will follow her until we can take the sutures out in about 10 days to 2 weeks. Krishan Harris DO
[2018-08-13 07:03] LABS: BASO # 0.03 K/mm3 (0.0-2.0); BASO % 0.3 % (0.0-3.0); EOS # 0.1 (0.0-0.7); EOS % 0.6 % (1.5-5.0); HEMOGLOBIN 9.5 g/dL (12.0-16.0); LYMPH # 1.8 (1.2-3.4); LYMPH % 16.2 % (22.0-35.0); MEAN CELL VOLUME 65.3 fl (80.0-105.0); MEAN CORPUSCULAR HEMOGLOBIN 19.4 pg (25.0-35.0); MEAN CORPUSCULAR HGB CONC 29.7 g/dl (31.0-37.0); MEAN PLATELET VOLUME 9.5 fl (7.0-11.0); MONO # 1.7 (0.1-0.6); MONO % 15.3 % (1.0-6.0); RBC 4.9 10^6/uL (3.5-6.1); RED CELL DISTRIBUTION WIDTH 15.2 % (11.5-14.5); WHITE BLOOD COUNT 11.1 10^3/uL (4.5-11.0)
[2018-08-13 07:31] LABS: ALBUMIN 3.3 g/dL (3.0-4.8); ALT/SGPT 12 U/L (7-56); AST/SGOT 22 U/L (14-36); BLOOD UREA NITROGEN 18 mg/dL (7-21); CALCIUM 8.7 mg/dL (8.4-10.5); GFR NON-AFRICAN AMERICAN > 60
[2018-08-13 09:10] LABS: PH,URINE 6.5 (4.7-8.0); URINE BILIRUBIN NEGATIVE (NEGATIVE); URINE BLOOD LARGE (NEGATIVE); URINE GLUCOSE (UA) NEGATIVE (NEGATIVE); URINE LEUKOCYTE ESTERASE NEGATIVE Leu/uL (NEGATIVE); URINE PROTEIN 100 mg/dL (<30 mg/dL)
[2018-08-13 09:13] LABS: URINE APPEARANCE CLEAR (CLEAR); URINE COLOR YELLOW (YELLOW)
[2018-08-13 09:26] LABS: URINE AMORPHOUS SEDIMENT FEW /hpf; URINE BACTERIA MANY /hpf; URINE RBC 25 - 30 /hpf (0-2)
[2018-08-13] MEDS: Cholecalciferol 1,000 INTLU TAB PO SCH (12:08)
--- NOTE | 2018-08-13 16:36 | CP.PCM.HP ---
<HarshaljulianneMichellesheelakobi - Last Filed: 08/13/18 16:30> History of Present Illness - History of Present Illness History of Present Illness: Wesley Grewal, PGY-1, Internal Medicine History and Physical for Dr. Ace 63 year old female with past medical history of mediterranean anemia and osteoarthritis presented status post right total knee replacement. Dr. Harris wanted the patient to be admitted for observation and possible admission to TCU. Patient has had a history of severe osteoarthritis and had left total knee placement 12 years ago. Post procedure patient reported mild throbbing pain of right knee but denied any other symptoms. Patient was started on tylenol 975 mg Q8, codeine 30 Q4PRN, and dilaudid Q4PRN for pain. She was started on emperic cefazolin therapy post surgery. In addition, she had ice applied to affected area, had drain management, and was allowed out of bed with assistance. Blood pressure three night ago reduced to 90s over 60s. Reduction in blood pressure was likely secondary to pain medication vs. nocturnal dipping. Two night ago, patient had 100.9 temperature which is currently at 100.7. She has been having increased temperature overnight the past 3 days. Chest X ray was performed to rule out common sources of infection. Pneumonia was ruled out as so urces of infection. For constipation, patient was given docusate. Patient has been passing gas and had her first bowel movement yesterday. Patient was continued on ferrous sulfate and folic acid for chronic mediterranean anemia. Dr. Harris and patient preferred patient to go to TCU for rehabilitation. Patient was denied by [facility] as she does not have acute rehabilitation diagnosis. Patient was accepted to TCU subsequently and is now in TCU. Today, patient reported that she has been able to walk to the door. She had not started rehabilitation yesterday, but was able to complete today's rehabilitation. She reports right knee pain after rehab, but reports that pain has been decreasing. She denies any other symptoms at this time. PMH:mediterranean fever, osteoarthritis PSH: left total knee replacement 12 years ago Allergies: percocet FMhx: Father: CHF SHx: occassional alcohol use, denies history of tobacco or recreational drug use PMD: [place] Home Medications: ibuprofen Present on Admission - Present on Admission Any Indicators Present on Admission: No Review of Systems - Review of Systems Review of Systems: except as mentioned in HPI Past Patient History - Infectious Disease Hx of Infectious Diseases: None - Past Social History Smoking Status: Never Smoked - CARDIAC Hx Cardiac Disorders: No Hx Angina: No Hx Cardia Arrhythmia: No Hx Circulatory Problems: No Hx Congestive Heart Failure: No Hx Heart Murmur: No Hx Heart Transplant: No Hx Hypercholesterolemia: No Hx Hypertension: No Hx Internal Defibrillator: No Hx Mitral Valve Prolapse: No Hx Pacemaker: No Hx Peripheral Edema: No Hx Peripheral Vascular Disease: No - PULMONARY Hx Respiratory Disorders: No Hx Asthma: No Hx Bronchitis: No Hx Chronic Obstructive Pulmonary Disease (COPD): No Hx Emphysema: No Hx Pneumonia: No Hx Respiratory Aspiration: No Hx Respiratory Tract Infection: No Hx Sleep Apnea: No Hx Tuberculosis: No - NEUROLOGICAL Hx Neurological Disorder: No Hx Alzheimer's Disease: No HX Cerebrovascular Accident: No Hx Dementia: No Hx Dizziness: No Hx Meningitis: No Hx Migraine: No Hx Parkinson's Disease: No Hx Seizures: No Hx Transient Ischemic Attacks (TIA): No - HEENT Hx HEENT Problems: No Hx Blind: No Hx Cataracts: No Hx Deafness: No Hx Difficulty Chewing: No Hx Epistaxis: No Hx Glaucoma: No Hx Macular Degeneration: No - RENAL Hx Chronic Kidney Disease: No Hx Dialysis: No Hx Kidney Stones: No Hx Neurogenic Bladder: No Hx Pyelonephritis: No Hx Renal (Kidney) Cancer: No Hx Renal Failure: No - ENDOCRINE/METABOLIC Hx Endocrine Disorders: No Hx Adrenal Cancer: No Hx Diabetes Insipidus: No Hx Diabetes Mellitus Type 1: No Hx Diabetes Mellitus Type 2: No Hx Hyperthyroidism: No Hx Hypothyroidism: No Hx Systemic Lupus Erythematosus: No - HEMATOLOGICAL/ONCOLOGICAL Hx Blood Disorders: No Hx AIDS: No Hx Anemia: No Hx Cancer: No Hx Chemotherapy: No Hx Cirrhosis: No Hx Hemophilia: No Hx Hepatitis A: No Hx Hepatitis B: No Hx Hepatitis C: No Hx Human Immunodeficiency Virus (HIV): No Hx Metastesis: No Hx Shingles: No Hx Sickle Cell Disease: No Hx Unexplained Bleeding: No - INTEGUMENTARY Hx Dermatological Problems: No Hx Basil Cell: No Hx Eczema: No Hx Melanoma: No Hx Psoriasis: No Hx Squamous Cell: No - MUSCULOSKELETAL/RHEUMATOLOGICAL Hx Arthritis: Yes (severe) - GASTROINTESTINAL Hx Gastrointestinal Disorders: No Hx Colostomy: No Hx Crohn's Disease: No Hx Diverticulitis: No Hx Gall Bladder Disease: No Hx Gastroesophageal Reflux: No Hx Ileostomy: No Hx Liver Failure: No Hx Pancreatitis: No HX Swallowing Problems: No Hx Ulcer: No - GENITOURINARY/GYNECOLOGICAL Hx Genitourinary Disorders: No Hx Hematuria: No Hx Incontinence: No Hx Reproductive Disorders: No Hx Sexually Transmitted Disorders: No Hx Urinary Tract Infection: No - PSYCHIATRIC Hx Psychophysiologic Disorder: No Hx Anxiety: No Hx Bipolar Disorder: No Hx Depression: No Hx Emotional Abuse: No Hx Hallucinations: No Hx Panic Symptoms: No Hx Paranoia: No Hx Post Traumatic Stress Disorder: No Hx Psychosis: No Hx Physical Abuse: No Hx Schizophrenia: No Hx Sexual Abuse: No - SURGICAL HISTORY Hx Surgeries: Yes Hx Amputation: No Hx Appendectomy: No Hx Cardiac Catheterization: No Hx Cholecystectomy: No Hx Coronary Stent: No Hx Gastric Bypass Surgery: No Hx Hysterectomy: No Hx Joint Replacement: Yes Hx Kidney Transplant: No Hx Liver Transplant: No Hx Mastectomy: No Hx Musculoskeletal Surgery: No Hx Open Heart Surgery: No Hx Orthopedic Surgery: No Hx Splenectomy: No - ANESTHESIA Hx Anesthesia Reactions: No Hx Malignant Hyperthermia: No Meds Allergies/Adverse Reactions: Allergies Allergy/AdvReac Type Severity Reaction Status Date / Time oxycodone [From Percocet] Allergy Intermediate ITCHING Verified 08/12/18 18:04 acetaminophen [From Percocet] Allergy ITCHING Verified 08/11/18 08:16 Physical Exam - Constitutional Appears: Well, Non-toxic, No Acute Distress - Head Exam Head Exam: ATRAUMATIC, NORMAL INSPECTION, NORMOCEPHALIC - Eye Exam Eye Exam: EOMI, PERRL - ENT Exam ENT Exam: Mucous Membranes Moist - Neck Exam Neck exam: Positive for: Normal Inspection - Respiratory Exam Respiratory Exam: Clear to Auscultation Bilateral, NORMAL BREATHING PATTERN - Cardiovascular Exam Cardiovascular Exam: REGULAR RHYTHM, RRR, +S1, +S2. absent: Clicks, Gallop, Rubs - GI/Abdominal Exam GI & Abdominal Exam: Normal Bowel Sounds, Soft. absent: Distended, Firm, Guarding, Tenderness - Extremities Exam Extremities exam: Positive for: normal capillary refill Additional comments: right lower extremity fully wrapped and difficult to evaluate. patient has full ROM of foot and toes on right lower extremity. Left appears to be without any cyanosis or deformities. ROM is intact. - Neurological Exam Neurological exam: Alert, CN II-XII Intact, Oriented x3 - Skin Skin Exam: Dry, Intact, Normal Color Results - Vital Signs Recent Vital Signs: Last Vital Signs Temp 100.7 F H 08/13/18 16:00 Pulse 102 H 08/13/18 16:00 Resp 20 08/13/18 16:00 BP 127/72 08/13/18 16:00 Pulse Ox 94 L 08/13/18 16:00 - Labs Result Diagrams: 08/13/18 06:30 08/13/18 06:30 Labs: Laboratory Results - last 24 hr 08/13/18 08/13/18 08/13/18 06:30 06:30 08:51 WBC 11.1 H RBC 4.90 Hgb 9.5 L Hct 32.0 L MCV 65.3 L MCH 19.4 L MCHC 29.7 L RDW 15.2 H Plt Count 228 MPV 9.5 Neut % (Auto) 67.6 Lymph % (Auto) 16.2 L Victoria % (Auto) 15.3 H Eos % (Auto) 0.6 L Baso % (Auto) 0.3 Lymph # (Auto) 1.8 Victoria # (Auto) 1.7 H Eos # (Auto) 0.1 Baso # (Auto) 0.03 Absolute Neuts (auto) 7.50 H Sodium 139 Potassium 4.0 Chloride 101 Carbon Dioxide 31 Anion Gap 10 BUN 18 Creatinine 0.6 L Est GFR ( Amer) > 60 Est GFR (Non-Af Amer) > 60 Random Glucose 119 H Calcium 8.7 Total Bilirubin 0.8 AST 22 ALT 12 Alkaline Phosphatase 67 Total Protein 6.5 Albumin 3.3 Globulin 3.2 Albumin/Globulin Ratio 1.0 L Urine Color Yellow Urine Appearance Clear Urine pH 6.5 Ur Specific [place] 1.025 Urine Protein 100 H Urine Glucose (UA) Negative Urine Ketones Negative Urine Blood Large H Urine Nitrate Negative Urine Bilirubin Negative Urine Urobilinogen 2.0 H Ur Leukocyte Esterase Negative Urine RBC 25 - 30 H Urine WBC 1 - 3 Ur Epithelial Cells 6 - 8 H Amorphous Sediment Few Urine Bacteria Many Urine Other Uyeast Assessment & Plan - Assessment and Plan (Free Text) Assessment: 63 year old female with past medical history of mediterranean anemia and osteoarthritis presents status post right total knee replacement. Plan: Status post right knee replacement for osteoarthritis -Continue tylenol 975 Q8, codeine 30 Q4PRN for pain -Discontinued cefazolin and dilaudid -Patient will continue rehabilitation and physical therapy at TCU -Continue to apply ice to affected area, drain management, OOB with assistance -Continue with incentive spirometry. -Vital signs Q4 -Dr. Harris, Orthopedic Surgery, consulted for further management. Febrile status post right knee replacement -Possibly secondary to postop fever -Blood culture negative for 24 hours -CXR: unremarkable -UA: shows no signs of UTI -Will continue to monitor for temperature. Constipation -Continue docusate 1 tab BID and senokot 1 tab QPM Mediterranean anemia -Continue ferrous sulfate and folic acid Vitamin D Deficiency -Continue cholecalciferol and calcium carbonate GI prophylaxis: pepcid DVT prophylaxis: lovenox Patient plan discussed with Dr. Ace. - Date & Time Date: 08/13/18 Time: 16:38 <Faith Ace R - Last Filed: 08/14/18 13:41> Results - Vital Signs Recent Vital Signs: Last Vital Signs Temp 97.6 F 08/14/18 10:00 Pulse 96 H 08/14/18 10:00 Resp 20 08/14/18 10:00 BP 117/56 L 08/14/18 10:00 Pulse Ox 96 08/14/18 10:00 - Labs Result Diagrams: 08/14/18 08:30 08/14/18 08:30 Labs: Laboratory Results - last 24 hr 08/14/18 08/14/18 08:30 08:30 WBC 10.5 RBC 4.93 Hgb 9.8 L Hct 31.2 L MCV 63.3 L MCH 19.9 L MCHC 31.4 RDW 15.4 H Plt Count 348 MPV 10.7 Neut % (Auto) 71.8 H Lymph % (Auto) 16.2 L Victoria % (Auto) 10.7 H Eos % (Auto) 1.0 L Baso % (Auto) 0.3 Lymph # (Auto) 1.7 Victoria # (Auto) 1.1 H Eos # (Auto) 0.1 Baso # (Auto) 0.03 Absolute Neuts (auto) 7.51 H Sodium 139 Potassium 3.6 Chloride 101 Carbon Dioxide 29 Anion Gap 13 BUN 23 H Creatinine 0.6 L Est GFR ( Amer) > 60 Est GFR (Non-Af Amer) > 60 Random Glucose 164 H Calcium 9.1 Total Bilirubin 0.8 AST 29 ALT 13 Alkaline Phosphatase 73 Total Protein 6.9 Albumin 3.6 Globulin 3.4 Albumin/Globulin Ratio 1.1 Attending/Attestation - Attestation I have personally seen and examined this patient.: Yes I have fully participated in the care of the patient.: Yes I have reviewed all pertinent clinical information: Yes Notes (Text): Patient seen and examined by me with resident at approximately at 11:10AM on 08/13/18. Case including HPI, physical exam, and assessment and plan discussed with resident. Agree with above with following additions/corrections. Patient is a 63 year old female with past medical history significant for Mediterranean anemia and bilateral knee osteoarthritis that presented to the hospital for scheduled right knee replacement on 08/10/18. Patient had total right knee replacement 08/10/18. Patient was seen by physical therapist and TCU was recommended. Patient was transferred to TCU on 08/12/18. Patient seen in TCU. Patient states that she is feeling ok. States she worked with physical therapy this morning and it went well. She states that she did have pain in her right knee. The pain is throbbing in nature and pain medicati ons and ice are helping. Patient is having bowel movements. She denies any dysuria. No shortness of breath. No nausea, vomiting, or abdominal pain. Patient denies fevers or chills. No headaches or dizziness. No chest pain or palpitations. 12 point review of systems reviewed by me. Please see above HPI. All other systems negative. Physical exam: General: Awake and alert lying in bed in no acute distress HEENT: Normocephalic, atraumatic. Extraocular muscles intact. Pupils equal and reactive, no scleral icterus. Oropharynx pink and moist. No pharyngeal erythema or exudate appreciated. Neck supple. Cardiovascular: Regular rhythm. Normal S1 and S2. No murmurs, rubs, or gallops appreciated Pulmonary: Normal respiratory effort. No rhonchi, rales, or wheezing appreciated Gastrointestinal: Soft, Nontender. Nondistended. Positive bowel sounds all 4 quadrants. No guarding. Musculoskeletal: Moves all extremities. No calf tenderness. Right lower extremity with Rajendra wrap that is clean, dry, and intact. Central nervous system: AAO x3. No focal deficits appreciated. Dermatologic: Skin warm and dry. Assessment and plan: Patient is a 63 year old female with past medical history significant for Mediterranean anemia and bilateral knee osteoarthritis that presented to the hospital for scheduled right knee replacement. Patient was seen by physical therapist and TCU was recommended. Patient was transferred to TCU on 08/12/18. 1. Gait instability. Continue physical therapy as tolerated. Continue pain management. 2. S/P total right knee replacement 08/10/18 for right knee osteoarthritis with uncontrolled pain. Continue pain management. Continue ASA 81mg for DVT prophylaxis per orthopedics. Continue incentive spirometer. Continue physical therapy. 3. Fevers. Unclear etiology. UA negative for infection. Chest xray with no active pulmonary disease. Blood culture with no growth to date. Will monitor for now. Will consult ID if continues to have fever. 4. History of anemia. Now with some acute blood loss. H&H stable. Continue Feosol. Continue to monitor. 5. Constipation. Patient is having bowel movements. Continue Colace and Senna. 6. GI/DVT prophylaxis. Pepcid/ASA Case was discussed in detail with the patient regarding current diagnosis and treatment plan. All questions answered.
[2018-08-13] MEDS: Docusate-Senna 50 mg-8.6 mg Tab PO SCH (17:15)
[2018-08-14 09:36] LABS: ALB/GLOB RATIO 1.1 (1.1-1.8); ALBUMIN 3.6 g/dL (3.0-4.8); ALT/SGPT 13 U/L (7-56); AST/SGOT 29 U/L (14-36); BLOOD UREA NITROGEN 23 mg/dL (7-21); CALCIUM 9.1 mg/dL (8.4-10.5); GFR NON-AFRICAN AMERICAN > 60
[2018-08-14 10:03] LABS: BASO # 0.03 K/mm3 (0.0-2.0); BASO % 0.3 % (0.0-3.0); EOS # 0.1 (0.0-0.7); HEMOGLOBIN 9.8 g/dL (12.0-16.0); LYMPH # 1.7 (1.2-3.4); LYMPH % 16.2 % (22.0-35.0); MEAN CELL VOLUME 63.3 fl (80.0-105.0); MEAN CORPUSCULAR HEMOGLOBIN 19.9 pg (25.0-35.0); MEAN CORPUSCULAR HGB CONC 31.4 g/dl (31.0-37.0); MEAN PLATELET VOLUME 10.7 fl (7.0-11.0); MONO # 1.1 (0.1-0.6); MONO % 10.7 % (1.0-6.0); RBC 4.93 10^6/uL (3.5-6.1); RED CELL DISTRIBUTION WIDTH 15.4 % (11.5-14.5); WHITE BLOOD COUNT 10.5 10^3/uL (4.5-11.0)
[2018-08-14] MEDS: Cholecalciferol 1,000 INTLU TAB PO SCH (10:21)
[2018-08-14] MEDS: Docusate-Senna 50 mg-8.6 mg Tab PO SCH (17:53)
[2018-08-14] MEDS: Vancomycin 1gm in NS 250ml 1 GM/250 ML BAG IVPB SCH (20:09)
[2018-08-14] MEDS: Cefepime 1gm in NS 100ml 1 GM/100 ML BAG IVPB SCH (22:41)
[2018-08-15 04:07] LABS: URINE BILIRUBIN SMALL (NEGATIVE); URINE BLOOD LARGE (NEGATIVE); URINE GLUCOSE (UA) NEGATIVE (NEGATIVE); URINE LEUKOCYTE ESTERASE NEGATIVE Leu/uL (NEGATIVE); URINE PROTEIN 30 mg/dL (<30 mg/dL)
[2018-08-15 04:10] LABS: URINE APPEARANCE CLEAR (CLEAR); URINE COLOR DARK YELLOW (YELLOW)
[2018-08-15 04:23] LABS: URINE RBC 15 - 20 /hpf (0-2)
[2018-08-15 04:25] LABS: URINE WBC 0 - 2 /hpf (0-6)
[2018-08-15] MEDS: Cefepime 1gm in NS 100ml 1 GM/100 ML BAG IVPB SCH (05:23)
[2018-08-15] MEDS: Vancomycin 1gm in NS 250ml 1 GM/250 ML BAG IVPB SCH (06:27)
[2018-08-15 08:09] LABS: BASO # 0.05 K/mm3 (0.0-2.0); BASO % 0.7 % (0.0-3.0); EOS # 0.2 (0.0-0.7); EOS % 3.2 % (1.5-5.0); HEMOGLOBIN 8.5 g/dL (12.0-16.0); LYMPH # 1.8 (1.2-3.4); LYMPH % 24.1 % (22.0-35.0); MEAN CELL VOLUME 64.5 fl (80.0-105.0); MEAN CORPUSCULAR HEMOGLOBIN 19.3 pg (25.0-35.0); MEAN CORPUSCULAR HGB CONC 29.9 g/dl (31.0-37.0); MEAN PLATELET VOLUME 9.1 fl (7.0-11.0); MONO # 0.8 (0.1-0.6); RBC 4.4 10^6/uL (3.5-6.1); RED CELL DISTRIBUTION WIDTH 14.8 % (11.5-14.5); WHITE BLOOD COUNT 7.3 10^3/uL (4.5-11.0)
[2018-08-15 08:39] LABS: ALBUMIN 3.2 g/dL (3.0-4.8); ALT/SGPT 25 U/L (7-56); AST/SGOT 39 U/L (14-36); BLOOD UREA NITROGEN 24 mg/dL (7-21); CALCIUM 8.6 mg/dL (8.4-10.5); GFR NON-AFRICAN AMERICAN > 60
--- NOTE | 2018-08-15 09:17 | RAD ---
Date of service: 08/14/2018 HISTORY: fever COMPARISON: Chest radiograph dated 08/12/2018. TECHNIQUE: 1 view obtained. FINDINGS: LUNGS: No active pulmonary disease. PLEURA: No significant pleural effusion identified, no pneumothorax apparent. CARDIOVASCULAR: Aortic atherosclerotic calcifications. Cardiomediastinal silhouette stably enlarged. OSSEOUS STRUCTURES: Unchanged. VISUALIZED UPPER ABDOMEN: Normal. OTHER FINDINGS: None. IMPRESSION: No active disease.
[2018-08-15] MEDS: Cholecalciferol 1,000 INTLU TAB PO SCH (09:31)
--- NOTE | 2018-08-15 10:15 | CP.PCM.PN ---
<Wesley Grewal - Last Filed: 08/15/18 10:07> Subjective - Date & Time of Evaluation Date of Evaluation: 08/15/18 Time of Evaluation: 10:07 - Subjective Subjective: Wesley Grewal, PGY-1, Internal Medicine Progress Note for Dr. Ace Patient was seen and evaluated at bedside. Patient had no acute overnight events. Patient reports improving right knee pain and has had a bowel movement. Patient denies any other symptoms at this time and has been tolerating rehabilitation well. 12-point ROS was unremarkable except for what was mentioned above. Objective - Vital Signs/Intake and Output Vital Signs (last 24 hours): Temp Pulse Resp BP Pulse Ox 99.1 F 97 H 20 122/77 96 08/14/18 16:00 08/14/18 16:00 08/14/18 16:00 08/14/18 16:00 08/14/18 16:00 Intake and Output: 08/15/18 08/15/18 06:59 18:59 Intake Total 420 Output Total 0 Balance 420 - Medications Medications: Current Medications Acetaminophen (Tylenol 325mg Tab) 650 mg PO Q4H PRN; Protocol PRN Reason: Fever >100.4 F Last Admin: 08/14/18 06:03 Dose: 650 mg Acetaminophen (Tylenol 325mg Tab) 975 mg PO Q8H [facility]; Protocol Last Admin: 08/15/18 08:22 Dose: 975 mg Aspirin (Aspirin Chewable) 81 mg PO 0800 [facility]; Protocol Last Admin: 08/15/18 08:18 Dose: 81 mg Calcium Carbonate (Caltrate) 600 mg PO DAILY [facility] Last Admin: 08/15/18 09:31 Dose: 600 mg Cholecalciferol (Vitamin D) 1,000 intlu PO DAILY [facility] Last Admin: 08/15/18 09:31 Dose: 1,000 intlu Codeine Sulfate (Codeine) 30 mg PO Q4 PRN; Protocol PRN Reason: Pain, moderate (4-7) Last Admin: 08/14/18 21:54 Dose: 30 mg Docusate Sodium (Colace) 100 mg PO BID [facility]; Protocol Last Admin: 08/15/18 09:31 Dose: 100 mg Famotidine (Pepcid) 20 mg PO 1000,2200 [facility]; Protocol Last Admin: 04/28/19 09:31 Dose: 20 mg Ferrous Sulfate (Feosol) 324 mg PO BID [facility]; Protocol Last Admin: 08/15/18 09:31 Dose: 324 mg Folic Acid (Folic Acid) 1 mg PO DAILY [facility]; Protocol Last Admin: 08/15/18 09:30 Dose: 1 mg Cefepime HCl (Maxipime 1gm) 1 gm in 100 mls @ 100 mls/hr IVPB Q8 [facility]; Protocol Stop: 08/23/18 22:01 Last Admin: 08/15/18 05:23 Dose: 100 mls/hr Vancomycin HCl (Vancomycin 1gm) 1 gm in 250 mls @ 167 mls/hr IVPB Q12H [facility]; Protocol Stop: 08/23/18 18:46 Last Admin: 08/15/18 06:27 Dose: 167 mls/hr Senna/Docusate Sodium (Senokot S 50 Mg-8.6 Mg) 1 tab PO QPM [facility]; Protocol Last Admin: 08/14/18 17:53 Dose: Not Given - Labs Labs: 08/15/18 07:00 08/15/18 07:00 - Constitutional Appears: Well, Non-toxic, No Acute Distress - Head Exam Head Exam: ATRAUMATIC, NORMAL INSPECTION, NORMOCEPHALIC - Eye Exam Eye Exam: EOMI, PERRL - ENT Exam ENT Exam: Mucous Membranes Moist - Neck Exam Neck exam: Positive for: Normal Inspection - Respiratory Exam Respiratory Exam: Clear to Auscultation Bilateral, NORMAL BREATHING PATTERN - Cardiovascular Exam Cardiovascular Exam: REGULAR RHYTHM, RRR, +S1, +S2. absent: Clicks, Gallop, Rubs - GI/Abdominal Exam GI & Abdominal Exam: Normal Bowel Sounds, Soft. absent: Distended, Firm, Guarding, Tenderness - Extremities Exam Extremities exam: Positive for: normal capillary refill Additional comments: right lower extremity fully wrapped and difficult to evaluate. patient has full ROM of foot and toes on right lower extremity. Left appears to be without any cyanosis or deformities. ROM is intact. - Neurological Exam Neurological exam: Alert, CN II-XII Intact, Oriented x3 - Skin Skin Exam: Dry, Intact, Normal Color Assessment and Plan - Assessment and Plan (Free Text) Assessment: 63 year old female with past medical history of mediterranean anemia and osteoarthritis presents status post right total knee replacement. Plan: Status post right knee replacement for osteoarthritis -Continue tylenol 975 Q8, codeine 30 Q4PRN for pain -Added tylenol 650 Q4PRN -Discontinued cefazolin and dilaudid -Patient will continue rehabilitation and physical therapy at TCU -Continue to apply ice to affected area, drain management, OOB with assistance -Continue with incentive spirometry. -Vital signs Q4 -Dr. Harris, Orthopedic Surgery, consulted for further management. Febrile status post right knee replacement -Possibly secondary to postop fever -Patient has been afebrile is over 24 hours. -Blood culture negative for 72 hours -CXR: unremarkable -UA: shows no signs of UTI -Ucx: negative -Will continue to monitor for temperature. -Continue vancomycin and cefepime day 2 Constipation -Continue docusate 1 tab BID and senokot 1 tab QPM -Patient has had bowel movements Mediterranean anemia -Continue ferrous sulfate and folic acid Vitamin D Deficiency -Continue cholecalciferol and calcium carbonate GI prophylaxis: pepcid DVT prophylaxis: lovenox Patient plan discussed with Dr. Ace. <Faith Ace R - Last Filed: 08/15/18 13:45> Objective - Vital Signs/Intake and Output Vital Signs (last 24 hours): Temp Pulse Resp BP Pulse Ox 99.1 F 97 H 20 122/77 96 08/14/18 16:00 08/14/18 16:00 08/14/18 16:00 08/14/18 16:00 08/14/18 16:00 Intake and Output: 08/15/18 08/15/18 06:59 18:59 Intake Total 420 420 Output Total 0 0 Balance 420 420 - Medications Medications: Current Medications Acetaminophen (Tylenol 325mg Tab) 650 mg PO Q4H PRN; Protocol PRN Reason: Fever >100.4 F Last Admin: 08/14/18 06:03 Dose: 650 mg Acetaminophen (Tylenol 325mg Tab) 975 mg PO Q8H [facility]; Protocol Last Admin: 08/15/18 08:22 Dose: 975 mg Aspirin (Aspirin Chewable) 81 mg PO 0800 [facility]; Protocol Last Admin: 08/15/18 08:18 Dose: 81 mg Calcium Carbonate (Caltrate) 600 mg PO DAILY [facility] Last Admin: 08/15/18 09:31 Dose: 600 mg Cholecalciferol (Vitamin D) 1,000 intlu PO DAILY [facility] Last Admin: 08/15/18 09:31 Dose: 1,000 intlu Codeine Sulfate (Codeine) 30 mg PO Q4 PRN; Protocol PRN Reason: Pain, moderate (4-7) Last Admin: 08/14/18 21:54 Dose: 30 mg Docusate Sodium (Colace) 100 mg PO BID [facility]; Protocol Last Admin: 08/15/18 09:31 Dose: 100 mg Famotidine (Pepcid) 20 mg PO 1000,2200 [facility]; Protocol Last Admin: 08/15/18 09:31 Dose: 20 mg Ferrous Sulfate (Feosol) 324 mg PO BID [facility]; Protocol Last Admin: 08/15/18 09:31 Dose: 324 mg Folic Acid (Folic Acid) 1 mg PO DAILY [facility]; Protocol Last Admin: 08/15/18 09:30 Dose: 1 mg Cefepime HCl (Maxipime 1gm) 1 gm in 100 mls @ 100 mls/hr IVPB Q8 [facility]; Protocol Stop: 08/23/18 22:01 Last Admin: 08/15/18 05:23 Dose: 100 mls/hr Vancomycin HCl (Vancomycin 1gm) 1 gm in 250 mls @ 167 mls/hr IVPB Q12H [facility]; Protocol Stop: 08/23/18 18:46 Last Admin: 08/15/18 06:27 Dose: 167 mls/hr Senna/Docusate Sodium (Senokot S 50 Mg-8.6 Mg) 1 tab PO QPM [facility]; Protocol Last Admin: 08/14/18 17:53 Dose: Not Given - Labs Labs: 08/15/18 07:00 08/15/18 07:00 Attending/Attestation - Attestation I have personally seen and examined this patient.: Yes I have fully participated in the care of the patient.: Yes I have reviewed all pertinent clinical information, including history, physical exam and plan: Yes Notes (Text): Patient seen and examined by me with resident at approximately at 9:40AM on 08/15/18. Case including HPI, physical exam, and assessment and plan discussed with resident. Agree with above with following additions/corrections. Patient is a 63 year old female with past medical history significant for Mediterranean anemia and bilateral knee osteoarthritis that presented to the hospital for scheduled right knee replacement on 08/10/18. Patient was seen by physical therapist and TCU was recommended. Patient was transferred to TCU on 08/12/18. Patient states that she is feeling better. States right knee pain is slowly getting better. Patient feels she is doing well with physical therapy. She denies any chest pain or shortness of breath. No headaches or dizziness. No fevers or chills. No nausea, vomiting, or abdominal pain. No dysuria. Patient states she was having bowel movements. Physical exam: General: Awake and alert lying in bed in no acute distress HEENT: Normocephalic, atraumatic. Extraocular muscles intact. Pupils equal and reactive, no scleral icterus. Oropharynx pink and moist. No pharyngeal erythema or exudate appreciated. Neck supple. Cardiovascular: Regular rhythm. Normal S1 and S2. No murmurs, rubs, or gallops appreciated Pulmonary: Normal respiratory effort. No rhonchi, rales, or wheezing appreciated Gastrointestinal: Soft, Nontender. Nondistended. Positive bowel sounds all 4 quadrants. No guarding. Musculoskeletal: Moves all extremities. No calf tenderness. Right lower extremity drain in place. Positive edema right lower extremity and knee. Central nervous system: AAO x3. No focal deficits appreciated. Dermatologic: Skin warm and dry. Assessment and plan: Patient is a 63 year old female with past medical history significant for Mediterranean anemia and bilateral knee osteoarthritis that presented to the hospital for scheduled right knee replacement 08/10/18. Patient was seen by physical therapist and TCU was recommended. Patient was transferred to TCU on 08/12/18. 1. Gait instability. Continue physical therapy as tolerated. Continue pain management. 2. S/P total right knee replacement 08/10/18 for right knee osteoarthritis and uncontrolled pain. Continue pain management. Pain improved. Continue ASA 81mg for DVT prophylaxis per orthopedics. Continue incentive spirometer. Continue physical therapy. 3. Fevers. Unclear etiology. Now afebrile. UA negative for infection. Chest xray per radiologist showed no active disease. Blood culture with no growth to date. ID recommendations appreciated. Continue vancomycin and cefepime. Will check right lower extremity venous doppler to rule out DVT. 4. History of anemia. Now with some acute blood loss. Continue Feosol. Continue to monitor. 5. Constipation. Patient is having bowel movements. Continue Colace and Senna. 6. GI/DVT prophylaxis. Pepcid/ASA Case was discussed in detail with the patient regarding current diagnosis and treatment plan. All questions answered.
--- NOTE | 2018-08-15 16:24 | CON ---
DATE: 08/15/2018 LOCATION: The patient is seen earlier today in room 302, bed 1. CHIEF COMPLAINT: Fever x1 day. HISTORY OF PRESENT ILLNESS: This is a 63-year-old female with [place] origin with diagnoses of Familial Mediterranean Fever and osteoarthritis who has had a left knee replacement 12 years ago and now has that right knee replacement on 08/10/2018 and had a fever yesterday postoperatively about 100.7. The patient states she is not having any pain in her knee other than postop pain. There has been no shortness of breath. No chest pain. No abdominal pain. No diarrhea or constipation. PAST MEDICAL HISTORY: Significant for osteoarthritis and FMF. PAST SURGICAL HISTORY: Significant for left knee surgery 12 years ago. ALLERGIES: OXYCODONE AND ACETAMINOPHEN. PHYSICAL EXAMINATION: VITAL SIGNS: Temperature is 100.7, heart rate of 109, blood pressure is 120/70 and respiratory rate of 20. HEENT: Unremarkable. NECK: Supple. LUNGS: Have decreased breath sounds. HEART: Normal S1 and S2. ABDOMEN: Soft. EXTREMITIES: Examination of the knee has the wound VAC on it. LABORATORY DATA: Reveals a white count of 11,000, hemoglobin of 9 and platelets of 228. Chemistry reveals the BUN of 18 and creatinine of 0.6. Urinalysis is noted, 1-3 wbc's. The patient had a chest x-ray, no active disease. ASSESSMENT AND PLAN: A 63-year-old female with Familial Mediterranean Fever and osteoarthritis, status post right knee replacement post op day #5 with systemic inflammatory response syndrome with post op day #5. We will treat the patient empirically with vancomycin and cefepime pending pancultures, blood, urine, sputum, methicillin-resistant Staphylococcus aureus screen and procalcitonin. We will review the chest x-ray. We will make further recommendations. Aris Sol MD
--- NOTE | 2018-08-15 16:53 | CP.PCM.PCO ---
Addendum Addendum: Called by nurse for positive posterior tibial clot per orthodontic laboratory technician doing lower extremity venous doppler. Official report not available yet. Discussed at length with Dr. Harris. Per Dr. Ko, patient to NOT receive any lovenox or heparin as she is a high risk for bleed. Also, it is unclear if this is acute or chronic as patient has been immobile for a couple of years and official read is pending. Per Dr. Harris, IR has been consulted. Patient has been notified of results.
[2018-08-15] MEDS: Docusate-Senna 50 mg-8.6 mg Tab PO SCH (17:30)
[2018-08-16 07:17] LABS: BASO # 0.05 K/mm3 (0.0-2.0); BASO % 0.7 % (0.0-3.0); EOS # 0.3 (0.0-0.7); EOS % 4.8 % (1.5-5.0); HEMOGLOBIN 8.7 g/dL (12.0-16.0); LYMPH # 1.8 (1.2-3.4); LYMPH % 25.8 % (22.0-35.0); MEAN CELL VOLUME 64.5 fl (80.0-105.0); MEAN CORPUSCULAR HEMOGLOBIN 19.2 pg (25.0-35.0); MEAN CORPUSCULAR HGB CONC 29.7 g/dl (31.0-37.0); MEAN PLATELET VOLUME 8.9 fl (7.0-11.0); MONO # 0.7 (0.1-0.6); MONO % 9.2 % (1.0-6.0); RBC 4.54 10^6/uL (3.5-6.1); RED CELL DISTRIBUTION WIDTH 14.9 % (11.5-14.5); WHITE BLOOD COUNT 7.1 10^3/uL (4.5-11.0)
[2018-08-16 08:30] LABS: ALBUMIN 3.2 g/dL (3.0-4.8); ALT/SGPT 32 U/L (7-56); AST/SGOT 41 U/L (14-36); BLOOD UREA NITROGEN 23 mg/dL (7-21); CALCIUM 8.8 mg/dL (8.4-10.5); GFR NON-AFRICAN AMERICAN > 60
[2018-08-16] MEDS ORDERED: Potassium Chloride 20 mEq ER Tab PO ONE (09:04)
[2018-08-16] MEDS ORDERED: Enoxaparin 100 mg Syringe SC STA (09:14)
[2018-08-16 09:35] LABS: IRON 35 ug/dL (45-180)
[2018-08-16 09:45] LABS: % IRON SATURATION 14 % (20-55); TOTAL IRON BINDING CAPACITY 260 ug/dL (265-497)
--- NOTE | 2018-08-16 09:55 | PN ---
DATE: 08/15/2018 SUBJECTIVE: The patient is recuperating from a total knee done on 08/10/2018. She is doing well. Wound is dry, no drainage. We are going to take the dressing off her right knee on Thursday and give her Aquacel dressing in preparation of going to home. She is ambulating better. Less pain, less swelling, and more strength. I am going to discontinue the antibiotics that were probably put on her for mild low-grade fever, but she does not show any clinical signs of infection, so I would like to not mask anything, so we are going to stop all the antibiotics and hopefully she continues to do well. I think that indeed was postop resorption of hematoma and she had the Hemovac in at that time, but she does show improving progress with ambulation and range of motion, but she is anemic. She is on iron, but she is low on protein, so we will try and increase her nutritional supplements and I will order a reticulocyte count and make sure she is making red blood cells. I will take the dressing out on Thursday and then go from there. The reason for stopping antibiotics is I just want to see that she does nit have infetion,. If she continues to do well with being afebrile and then will have to establish treatment plan later. Krishan Harris DO [facility]
--- NOTE | 2018-08-16 10:04 | CON ---
DATE OF CONSULTATION: 08/16/2018 PULMONARY CONSULTATION HISTORY OF PRESENT ILLNESS: Ms. Rivas is a 63-year-old woman, who is on Transitional Care Unit having had a right total knee replacement. She developed a deep vein thrombosis of the right lower extremity. Pulmonary, the patient has no respiratory symptoms whatsoever. No history of pulmonary disease. She feels well. The reason for pulmonary evaluation is unclear. There is evidently some disagreement as whether the patient can have anticoagulation or not. This is not in the room of a production operator. As stated above, the patient has no previous pulmonary history. She had a low-grade fever also and Infectious Disease specialist was requested to evaluate this patient. The patient denies respiratory distress at this time. PAST MEDICAL HISTORY: Mediterranean fever, osteoarthritis. ALLERGIES: PERCOCET. FAMILY HISTORY: The only findings are congestive heart failure in her father. SOCIAL HISTORY: The patient never smoked. She has no travel history. No occupational exposure. HOME MEDICATIONS: Ibuprofen. REVIEW OF SYSTEMS: Right knee pain, DVT. All other systems. PHYSICAL EXAMINATION: GENERAL: The patient is comfortable, in no acute distress. She has no complaints at this time. VITAL SIGNS: Her vital signs remained stable. She has temperature of 99.6, blood pressure 130/70, heart rate 70, respiratory rate 16, O2 sat 99% on room air. HEENT: Normocephalic, atraumatic. NECK: Supple. No JVD. No lymphadenopathy. No jugular venous distention. HEART: Regular rhythm, S1, S2 without murmur, gallop or rub. LUNGS: Clear to percussion and auscultation. GASTROINTESTINAL: Abdomen is soft. Bowel sounds normoactive. EXTREMITIES: Reveal the right leg wrapped with drain in place. NEUROLOGIC: Awake, alert, oriented, no focal findings. SKIN: Dry without change. LABORATORY DATA: White count 11,000, hemoglobin 9.5, hematocrit 32, sodium 139, potassium 4, chloride 101, CO2 of 31, BUN 18, creatinine 0.6, glucose 119. No additional laboratory data is noted. Chest x-ray shows no acute pulmonary infiltrates. ASSESSMENT: This is a sena 63-year-old woman status post right knee replacement with deep vein thrombosis shown on ultrasound of the right lower extremity. Further evaluation is pending. Leather Finisher was requested to rule out pulmonary embolism. I do not think this is likely based on clinical findings, but a ventilation perfusion scan will be ordered to confirm this feeling. PLAN: Although we suggest treatment of deep vein thrombosis, obviously there is a problem during the early postoperative period according to the surgeon. This patient requires refrigeration lead and vascular surgeon to further evaluate the risks and benefits of anticoagulation and the use of other means to prevent clot migration. There is no evidence of pulmonary embolism at this point, but a V/Q scan has been ordered. We will defer to Vascular Surgery, Orthopedic Surgery, and Hematology regarding the appropriate care of this patient with DVT in the postoperative state. This is not a case of pulmonary embolism at this time unless the V/Q scan ordered shows changes which are unexpected. We are available to see this patient in followup as required. I have discussed the case at length with the nurse taking care of the patient. A V/Q scan has been ordered. We will follow closely with you. I have discussed the matter with the patient herself, and she is aware of the controversy and knows that vascular doctor and refrigeration lead are coming to see her. We will be happy to follow with you as required in the interim. Paul Paige MD MTDD
[2018-08-16] MEDS: Cholecalciferol 1,000 INTLU TAB PO SCH (11:13)
--- NOTE | 2018-08-16 14:16 | US ---
PROCEDURE: Right lower extremity venous US HISTORY: Leg pain and swelling. Evaluate for DVT. PHYSICIAN(S): Monico Buckner M.D. TECHNIQUE: Duplex sonography and color-flow Doppler with graded compression were used to evaluate the deep venous system of the right lower extremity. FINDINGS: The exam is very limited by body habitus and edema. There is hypoechoic acute thrombus noted in the visualized right tibial veins. The right popliteal vein, femoral vein, and right common femoral vein are patent and compressible. IMPRESSION: 1. Acute tibial DVT. A follow-up ultrasound is recommended in 7-10 days
[2018-08-16] MEDS: Docusate-Senna 50 mg-8.6 mg Tab PO SCH (17:48)
[2018-08-16 18:52] LABS: FERRITIN 71.6 ng/mL
--- NOTE | 2018-08-16 22:18 | PN ---
DATE: 08/16/2018 SUBJECTIVE: The patient is in bed in no acute distress, nontoxic. PHYSICAL EXAMINATION VITAL SIGNS: Temperature is 99, blood pressure is 120/70, respiratory rate 20. HEENT: Unremarkable. NECK: Supple. LUNGS: Have decreased breath sounds. HEART: Normal S1 and S2. ABDOMEN: Soft and nontender. LABORATORY EXAMINATION: Reveals a white count of 7.1, hemoglobin of 8, BUN of 23, creatinine 0.5. Procalcitonin of 0.6. Urinalysis is noted. Microbiology is reviewed. Blood cultures are negative. Urine cultures are negative. Nares MRSA is negative. REVIEW OF ORDERS: Reveals the patient to be off of antibiotics. ASSESSMENT AND PLAN: This 63-year-old female with history of familial Mediterranean fever, osteoarthritis, status post right knee replacement postprocedure day #6 with systemic inflammatory response syndrome postop day #6, and currently now off of antibiotics. The throat cultures are negative. Blood, urine, nares and repeat urine. Chest x-ray is reported to be negative. The patient's white count is normal at 7.1. Dr. Rosen's consultation is reviewed. The patient's ultrasound of lower extremity, acute deep vein thrombosis. Aris Sol MD
[2018-08-16] MEDS: Enoxaparin 100 mg Syringe SC SCH (23:00)
[2018-08-17 07:04] LABS: BASO # 0.05 K/mm3 (0.0-2.0); BASO % 0.7 % (0.0-3.0); EOS # 0.3 (0.0-0.7); EOS % 4.2 % (1.5-5.0); HEMOGLOBIN 8.7 g/dL (12.0-16.0); LYMPH # 1.5 (1.2-3.4); LYMPH % 21.2 % (22.0-35.0); MEAN CELL VOLUME 64.8 fl (80.0-105.0); MEAN CORPUSCULAR HEMOGLOBIN 19.5 pg (25.0-35.0); MEAN CORPUSCULAR HGB CONC 30.1 g/dl (31.0-37.0); MEAN PLATELET VOLUME 8.9 fl (7.0-11.0); MONO # 0.8 (0.1-0.6); MONO % 11.1 % (1.0-6.0); RBC 4.46 10^6/uL (3.5-6.1); RED CELL DISTRIBUTION WIDTH 14.8 % (11.5-14.5)
[2018-08-17 07:45] LABS: ALBUMIN 3.1 g/dL (3.0-4.8); ALT/SGPT 23 U/L (7-56); AST/SGOT 35 U/L (14-36); BLOOD UREA NITROGEN 20 mg/dL (7-21); CALCIUM 8.8 mg/dL (8.4-10.5); GFR NON-AFRICAN AMERICAN > 60
--- NOTE | 2018-08-17 08:55 | CP.PCM.PN ---
<Wesley Grewal - Last Filed: 08/17/18 15:08> Subjective - Date & Time of Evaluation Date of Evaluation: 08/17/18 Time of Evaluation: 08:47 - Subjective Subjective: Wesley Grewal, PGY-1, Internal Medicine Progress Note for Dr. Hawkins Patient seen and evaluated at bedside. Patient had no acute overnight events. Patient reports improvement in right knee throbbing pain and denies any other symptoms at this time. She has been tolerating physical therapy well. 12-point ROS was unremarkable except for what was mentioned above. Objective - Vital Signs/Intake and Output Vital Signs (last 24 hours): Temp Pulse Resp BP Pulse Ox 99.1 F 97 H 20 122/77 96 08/14/18 16:00 08/14/18 16:00 08/14/18 16:00 08/14/18 16:00 08/14/18 16:00 - Medications Medications: Current Medications Acetaminophen (Tylenol 325mg Tab) 650 mg PO Q4H PRN; Protocol PRN Reason: Fever >100.4 F Last Admin: 08/14/18 06:03 Dose: 650 mg Acetaminophen (Tylenol 325mg Tab) 975 mg PO Q8H [facility]; Protocol Last Admin: 08/17/18 08:08 Dose: 975 mg Aspirin (Aspirin Chewable) 81 mg PO 0800 [facility]; Protocol Last Admin: 08/16/18 08:14 Dose: 81 mg Calcium Carbonate (Caltrate) 600 mg PO DAILY [facility] Last Admin: 08/16/18 11:12 Dose: 600 mg Cholecalciferol (Vitamin D) 1,000 intlu PO DAILY [facility] Last Admin: 08/16/18 11:13 Dose: 1,000 intlu Codeine Sulfate (Codeine) 30 mg PO Q4 PRN; Protocol PRN Reason: Pain, moderate (4-7) Last Admin: 08/16/18 21:25 Dose: 30 mg Docusate Sodium (Colace) 100 mg PO BID [facility]; Protocol Last Admin: 08/16/18 17:48 Dose: Not Given Enoxaparin Sodium (Lovenox) 90 mg SC Q12H [facility]; Protocol Last Admin: 08/16/18 23:00 Dose: 90 mg Famotidine (Pepcid) 20 mg PO 1000,2200 [facility]; Protocol Last Admin: 08/16/18 21:26 Dose: 20 mg Folic Acid (Folic Acid) 1 mg PO DAILY [facility]; Protocol Last Admin: 08/16/18 11:12 Dose: 1 mg Iron Sucrose 200 mg/ Sodium (Chloride) 110 mls @ 110 mls/hr IVPB ONCE ONE Stop: 08/17/18 12:59 Senna/Docusate Sodium (Senokot S 50 Mg-8.6 Mg) 1 tab PO QPM [facility]; Protocol Last Admin: 08/16/18 17:48 Dose: Not Given - Labs Labs: 08/17/18 06:45 08/17/18 06:45 - Constitutional Appears: Well, Non-toxic, No Acute Distress - Head Exam Head Exam: ATRAUMATIC, NORMAL INSPECTION, NORMOCEPHALIC - Eye Exam Eye Exam: EOMI, PERRL - ENT Exam ENT Exam: Mucous Membranes Moist - Neck Exam Neck exam: Positive for: Normal Inspection - Respiratory Exam Respiratory Exam: Clear to Auscultation Bilateral, NORMAL BREATHING PATTERN - Cardiovascular Exam Cardiovascular Exam: REGULAR RHYTHM, RRR, +S1, +S2. absent: Clicks, Gallop, Rubs - GI/Abdominal Exam GI & Abdominal Exam: Normal Bowel Sounds, Soft. absent: Distended, Firm, Guarding, Tenderness - Extremities Exam Extremities exam: Positive for: normal capillary refill, increased warmth Additional comments: right lower extremity fully wrapped and difficult to evaluate. patient has full ROM of foot and toes on right lower extremity. Left appears to be without any cyanosis or deformities. ROM is intact. - Neurological Exam Neurological exam: Alert, CN II-XII Intact, Oriented x3 - Skin Skin Exam: Dry, Intact, Normal Color Assessment and Plan - Assessment and Plan (Free Text) Assessment: 63 year old female with past medical history of mediterranean anemia and osteoarthritis presents status post right total knee replacement. Plan: Right tibial DVT -Confirmed with ultrasound -Well's criteria: 3 -RIETE score: 1.5. Usually used for PE, but bleeding risk is 2.8% for anticoagulation. -Will obtain V/Q scan to rule out PE -Given loading dose of lovenox 90 mg -Started on lovenox 90 mg Q12 Status post right knee replacement for osteoarthritis -Continue tylenol 975 Q8, tylenol 650 Q4PRN, codeine 30 Q4PRN for pain -Patient will continue rehabilitation and physical therapy at [facility] -Continue to apply ice to affected area, drain management, OOB with assistance -Continue with incentive spirometry. -Vital signs Q4 -Dr. Harris, Orthopedic Surgery, consulted for further management. Febrile status post right knee replacement -Possibly secondary to postop fever -Patient is currently afebrile. -Blood culture negative for 5 days -CXR: unremarkable -UA: shows no signs of UTI -Ucx: negative -Will continue to monitor for temperature. 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 Hawkins. <Sanford Hawkins - Last Filed: 08/18/18 18:39> Objective - Vital Signs/Intake and Output Vital Signs (last 24 hours): Temp Pulse Resp BP Pulse Ox 98.6 F 92 H 20 118/73 95 08/18/18 16:00 08/18/18 16:00 08/18/18 16:00 08/18/18 16:00 08/18/18 16:00 Intake and Output: 08/18/18 08/18/18 06:59 18:59 Intake Total 420 Balance 420 - Medications Medications: Current Medications Acetaminophen (Tylenol 325mg Tab) 650 mg PO Q4H PRN; Protocol PRN Reason: Fever >100.4 F Last Admin: 08/14/18 06:03 Dose: 650 mg Acetaminophen (Tylenol 325mg Tab) 975 mg PO Q8H [facility]; Protocol Last Admin: 08/18/18 15:30 Dose: 975 mg Aspirin (Aspirin Chewable) 81 mg PO 0800 [facility]; Protocol Last Admin: 08/16/18 08:14 Dose: 81 mg Calcium Carbonate (Caltrate) 600 mg PO DAILY [facility] Last Admin: 08/18/18 09:53 Dose: 600 mg Cholecalciferol (Vitamin D) 1,000 intlu PO DAILY [facility] Last Admin: 08/18/18 10:08 Dose: 1,000 intlu Docusate Sodium (Colace) 100 mg PO BID [facility]; Protocol Last Admin: 08/18/18 17:32 Dose: 100 mg Enoxaparin Sodium (Lovenox) 90 mg SC 1000,2200 [facility]; Protocol Last Admin: 08/18/18 09:55 Dose: 90 mg Famotidine (Pepcid) 20 mg PO 1000,2200 [facility]; Protocol Last Admin: 08/18/18 10:08 Dose: 20 mg Folic Acid (Folic Acid) 1 mg PO DAILY [facility]; Protocol Last Admin: 08/18/18 09:54 Dose: 1 mg Senna/Docusate Sodium (Senokot S 50 Mg-8.6 Mg) 1 tab PO QPM [facility]; Protocol Last Admin: 08/18/18 17:32 Dose: Not Given - Labs Labs: 08/18/18 07:20 08/18/18 07:20 Attending/Attestation - Attestation I have personally seen and examined this patient.: Yes I have fully participated in the care of the patient.: Yes I have reviewed all pertinent clinical information, including history, physical exam and plan: Yes Notes (Text): 08/18/18 18:33 Attending note; Patient seen and examined with resident In TCU. denies any fever and chills. denies any chest pain, shortness of breath and palpitations. Patient was seen by orthopedics this morning. Wound VAC was removed Wound is clean. No bleeding noted. Erythema is improved. No cellulitis noted. Patient is a 63 year old female with past medical history significant for beta thalassemia minor and bilateral knee osteoarthritis that presented to the hospital for scheduled right knee replacement 08/10/18. Patient was transferred to TCU on 08/12/18 for physical therapy. 1. Gait instability. Continue physical therapy as tolerated. Continue pain management. 2. S/P total right knee replacement 08/10/18 for right knee osteoarthritis and uncontrolled pain.. Pain improved. Status post wound VAC removal. No bleeding noted. 3. Fevers. resolved. Now afebrile. UA negative for infection. Chest xray showed no active disease. Blood culture with no growth to date. Currently off antibiotics . 4. Acute right tibial DVT; case discussed with vascular surgery Dr. Monico Buckner in detail. Continue Lovenox treatment dose. Monitor for any bleeding. Currently patient has stable hemoglobin. No active bleeding noted. Risks and benefits of anticoagulation explained to the patient in detail. 5. History of beta thalassemia minor; never got transfusion before. currently patient has anemia due to acute blood loss. Started on IV iron. Hematology evaluation requested. 6. Constipation. Resolved .patient is having bowel movements. Continue Colace and Senna. 7. Patient have no symptoms of PE. Pulmonary evaluation appreciated. VQ scan ordered. Case discussed with orthopedics and vascular surgery in detail. Continue physical therapy and ICU.
[2018-08-17] MEDS: Cholecalciferol 1,000 INTLU TAB PO SCH (09:52)
[2018-08-17] MEDS: Enoxaparin 100 mg Syringe SC SCH ×2 (10:56→21:32)
--- NOTE | 2018-08-17 14:34 | PN ---
DATE: 08/17/2018 PULMONARY PROGRESS NOTE SUBJECTIVE: Shima remains in a TCU comfortable with her leg extended and wrapped. The lung scan that I ordered yesterday still has not been completed. There is no clear evidence of any pulmonary complaints at this time. A lung scan is being done to rule out pulmonary embolism, although the suspicion is low. The patient still has a deep vein thrombosis of the right lower extremity status post total knee replacement. I discussed the case at length with Dr. Krishan Harris Junior, the attending. He is afraid to start anticoagulation, fearful for the new joint replacement, but deep vein thrombosis is noted on the ultrasound. I have advised her that this is not a pulmonary problem and that vascular, Dr. Buckner and Hematology, Dr. Ayoub needs to be consulted regarding further intervention. OBJECTIVE: VITAL SIGNS: Remain stable. The patient is afebrile, blood pressure 130/80, heart rate 70, respiratory rate 16, oxygen saturation 100%. NECK: Supple. No jugular venous distention. No lymphadenopathy. HEART: Regular rhythm. S1, S2 without murmur, gallop or rub. LUNGS: Clear to percussion and auscultation. GASTROINTESTINAL: Soft. : Within normal limits EXTREMITIES: Reveal no clubbing, cyanosis or edema. The right leg is wrapped and a drain in place. NEUROLOGIC: No focal findings. SKIN: Dry; intact LABORATORY DATA: The chest x-ray is negative. The V/Q scan has not yet been done and will be expedited. ASSESSMENT: Status post surgery right knee replacement. Deep vein thrombosis, right leg. No signs of pulmonary embolism at this time. PLAN: I have discussed this case with Hematology and we are awaiting Vascular Surgery evaluation. I am concerned that the deep vein thrombosis may propagate and may in fact break off and cause gross pulmonary embolism whether anticoagulation is appropriate will be determined by Vascular and Hematology. If it is deemed necessary, Vascular may need to place an inferior vena cava filter to protect the patient from pulmonary embolism if anticoagulation is in fact contraindicated. I will defer to the specialities as this is a non-pulmonary issue at this time. We will review the V/Q when it is completed and discuss with the attending physician. Thank you for the opportunity to participate in the care of this patient. Paul Paige MD [facility] # [id number] MERISSA
--- NOTE | 2018-08-17 16:33 | CP.PCM.CON ---
History of Present Illness - History of Present Illness History of Present Illness: 63 year old female with past medical history of beta thal minor and OA who was admitted for right knee replacement. She had undergone surgery and was noted to have right lower extremity pain and swelling later confirmed as LE VTE. Since her diagnosis she was started on Lovenox and is currently awaiting V/Q scan. She denies any prior history of blood clot, miscarriage, or family history of clots. She denies any shortness of breath, chest pain, headaches, visual changes, nausea, vomiting. Her pain is controlled with medications. Hematology consulted for management of her right lower extremity DVT. PMH: Beta thal minor, osteoarthritis PSH: left total knee replacement 12 years ago and right knee replacement during this admission. Allergies: percocet FMhx: Father: CHF SHx: occasional alcohol use, denies history of tobacco or recreational drug use PMD: [place] Home Medications: ibuprofen Review of Systems - Constitutional Constitutional: As Per HPI. absent: Anorexia, Chills, Fatigue, Fever - EENT Eyes: As Per HPI. absent: Blind Spots, Blurred Vision, Discharge Ears: As Per HPI Nose/Mouth/Throat: As Per HPI - Breasts Breasts: As Per HPI - Cardiovascular Cardiovascular: As Per HPI, Edema, Pedal Edema. absent: Chest Pain, Dyspnea on Exertion, Lightheadedness, Orthopnea, Palpitations - Respiratory Respiratory: absent: Cough, Dyspnea, Hemoptysis, Dyspnea on Exertion - Gastrointestinal Gastrointestinal: absent: Abdominal Pain, Nausea, Vomiting - Genitourinary Genitourinary: As Per HPI - Reproductive: Female Reproductive:Female: As Per HPI - Menstruation Menstruation: As Per HPI - Musculoskeletal Musculoskeletal: As Per HPI - Integumentary Integumentary: As Per HPI - Psychiatric Psychiatric: As Per HPI Past Patient History - Infectious Disease Hx of Infectious Diseases: None - Past Social History Smoking Status: Never Smoked - CARDIAC Hx Cardiac Disorders: No Hx Angina: No Hx Cardia Arrhythmia: No Hx Circulatory Problems: No Hx Congestive Heart Failure: No Hx Heart Murmur: No Hx Heart Transplant: No Hx Hypercholesterolemia: No Hx Hypertension: No Hx Internal Defibrillator: No Hx Mitral Valve Prolapse: No Hx Pacemaker: No Hx Peripheral Edema: No Hx Peripheral Vascular Disease: No - PULMONARY Hx Respiratory Disorders: No Hx Asthma: No Hx Bronchitis: No Hx Chronic Obstructive Pulmonary Disease (COPD): No Hx Emphysema: No Hx Pneumonia: No Hx Respiratory Aspiration: No Hx Respiratory Tract Infection: No Hx Sleep Apnea: No Hx Tuberculosis: No - NEUROLOGICAL Hx Neurological Disorder: No Hx Alzheimer's Disease: No HX Cerebrovascular Accident: No Hx Dementia: No Hx Dizziness: No Hx Meningitis: No Hx Migraine: No Hx Parkinson's Disease: No Hx Seizures: No Hx Transient Ischemic Attacks (TIA): No - HEENT Hx HEENT Problems: No Hx Blind: No Hx Cataracts: No Hx Deafness: No Hx Difficulty Chewing: No Hx Epistaxis: No Hx Glaucoma: No Hx Macular Degeneration: No - RENAL Hx Chronic Kidney Disease: No Hx Dialysis: No Hx Kidney Stones: No Hx Neurogenic Bladder: No Hx Pyelonephritis: No Hx Renal (Kidney) Cancer: No Hx Renal Failure: No - ENDOCRINE/METABOLIC Hx Endocrine Disorders: No Hx Adrenal Cancer: No Hx Diabetes Insipidus: No Hx Diabetes Mellitus Type 1: No Hx Diabetes Mellitus Type 2: No Hx Hyperthyroidism: No Hx Hypothyroidism: No Hx Systemic Lupus Erythematosus: No - HEMATOLOGICAL/ONCOLOGICAL Hx Blood Disorders: No Hx AIDS: No Hx Anemia: No Hx Cancer: No Hx Chemotherapy: No Hx Cirrhosis: No Hx Hemophilia: No Hx Hepatitis A: No Hx Hepatitis B: No Hx Hepatitis C: No Hx Human Immunodeficiency Virus (HIV): No Hx Metastesis: No Hx Shingles: No Hx Sickle Cell Disease: No Hx Unexplained Bleeding: No - INTEGUMENTARY Hx Dermatological Problems: No Hx Basil Cell: No Hx Eczema: No Hx Melanoma: No Hx Psoriasis: No Hx Squamous Cell: No - MUSCULOSKELETAL/RHEUMATOLOGICAL Hx Arthritis: Yes (severe) - GASTROINTESTINAL Hx Gastrointestinal Disorders: No Hx Colostomy: No Hx Crohn's Disease: No Hx Diverticulitis: No Hx Gall Bladder Disease: No Hx Gastroesophageal Reflux: No Hx Ileostomy: No Hx Liver Failure: No Hx Pancreatitis: No HX Swallowing Problems: No Hx Ulcer: No - GENITOURINARY/GYNECOLOGICAL Hx Genitourinary Disorders: No Hx Hematuria: No Hx Incontinence: No Hx Reproductive Disorders: No Hx Sexually Transmitted Disorders: No Hx Urinary Tract Infection: No - PSYCHIATRIC Hx Psychophysiologic Disorder: No Hx Anxiety: No Hx Bipolar Disorder: No Hx Depression: No Hx Emotional Abuse: No Hx Hallucinations: No Hx Panic Symptoms: No Hx Paranoia: No Hx Post Traumatic Stress Disorder: No Hx Psychosis: No Hx Physical Abuse: No Hx Schizophrenia: No Hx Sexual Abuse: No - SURGICAL HISTORY Hx Surgeries: Yes Hx Amputation: No Hx Appendectomy: No Hx Cardiac Catheterization: No Hx Cholecystectomy: No Hx Coronary Stent: No Hx Gastric Bypass Surgery: No Hx Hysterectomy: No Hx Joint Replacement: Yes Hx Kidney Transplant: No Hx Liver Transplant: No Hx Mastectomy: No Hx Musculoskeletal Surgery: No Hx Open Heart Surgery: No Hx Orthopedic Surgery: No Hx Splenectomy: No - ANESTHESIA Hx Anesthesia Reactions: No Hx Malignant Hyperthermia: No Meds Allergies/Adverse Reactions: Allergies Allergy/AdvReac Type Severity Reaction Status Date / Time oxycodone [From Percocet] Allergy Intermediate ITCHING Verified 08/12/18 18:04 acetaminophen [From Percocet] Allergy ITCHING Verified 08/11/18 08:16 - Medications Medications: Current Medications Acetaminophen (Tylenol 325mg Tab) 650 mg PO Q4H PRN; Protocol PRN Reason: Fever >100.4 F Last Admin: 08/14/18 06:03 Dose: 650 mg Acetaminophen (Tylenol 325mg Tab) 975 mg PO Q8H [facility]; Protocol Last Admin: 08/17/18 08:08 Dose: 975 mg Aspirin (Aspirin Chewable) 81 mg PO 0800 [facility]; Protocol Last Admin: 08/16/18 08:14 Dose: 81 mg Calcium Carbonate (Caltrate) 600 mg PO DAILY [facility] Last Admin: 08/17/18 09:54 Dose: 600 mg Cholecalciferol (Vitamin D) 1,000 intlu PO DAILY [facility] Last Admin: 08/17/18 09:52 Dose: 1,000 intlu Codeine Sulfate (Codeine) 30 mg PO Q4 PRN; Protocol PRN Reason: Pain, moderate (4-7) Last Admin: 08/16/18 21:25 Dose: 30 mg Docusate Sodium (Colace) 100 mg PO BID [facility]; Protocol Last Admin: 08/17/18 09:55 Dose: Not Given Enoxaparin Sodium (Lovenox) 90 mg SC Q12H [facility]; Protocol Last Admin: 08/17/18 10:56 Dose: 90 mg Famotidine (Pepcid) 20 mg PO 1000,2200 [facility]; Protocol Last Admin: 08/17/18 09:54 Dose: 20 mg Folic Acid (Folic Acid) 1 mg PO DAILY [facility]; Protocol Last Admin: 08/17/18 09:54 Dose: 1 mg Senna/Docusate Sodium (Senokot S 50 Mg-8.6 Mg) 1 tab PO QPM [facility]; Protocol Last Admin: 08/16/18 17:48 Dose: Not Given Physical Exam - Constitutional Appears: Well, Non-toxic, No Acute Distress - Head Exam Head Exam: ATRAUMATIC, NORMAL INSPECTION, NORMOCEPHALIC - Eye Exam Eye Exam: EOMI, Normal appearance, PERRL - ENT Exam ENT Exam: Mucous Membranes Dry, Mucous Membranes Moist - Neck Exam Neck exam: Positive for: Full Rom - Respiratory Exam Respiratory Exam: NORMAL BREATHING PATTERN. absent: Rhonchi, Wheezes, Respiratory Distress - Cardiovascular Exam Cardiovascular Exam: REGULAR RHYTHM, +S1, +S2 - GI/Abdominal Exam GI & Abdominal Exam: Normal Bowel Sounds, Soft. absent: Diminished Bowel Sounds, Hypoactive Bowel Sounds - Rectal Exam Rectal Exam: Deferred - Extremities Exam Extremities exam: Positive for: calf tenderness - Back Exam Back exam: absent: CVA tenderness (L), CVA tenderness (R) - Neurological Exam Neurological exam: Alert, CN II-XII Intact, Oriented x3 - Psychiatric Exam Psychiatric exam: Normal Affect, Normal Mood Results - Vital Signs Recent Vital Signs: Last Vital Signs Temp 98.5 F 08/17/18 10:00 Pulse 86 08/17/18 10:00 Resp 18 08/17/18 10:00 BP 114/68 08/17/18 10:00 Pulse Ox 95 08/17/18 10:00 - Labs Result Diagrams: 08/17/18 06:45 08/17/18 06:45 Labs: Laboratory Results - last 24 hr 08/16/18 08/17/18 08/17/18 08:39 06:45 06:45 WBC 7.0 RBC 4.46 Hgb 8.7 L Hct 28.9 L MCV 64.8 L MCH 19.5 L MCHC 30.1 L RDW 14.8 H Plt Count 398 MPV 8.9 Neut % (Auto) 62.8 Lymph % (Auto) 21.2 L [place] % (Auto) 11.1 H Eos % (Auto) 4.2 Baso % (Auto) 0.7 Lymph # (Auto) 1.5 [place] # (Auto) 0.8 H Eos # (Auto) 0.3 Baso # (Auto) 0.05 Absolute Neuts (auto) 4.37 Sodium 140 Potassium 4.1 Chloride 104 Carbon Dioxide 31 Anion Gap 9 L BUN 20 Creatinine 0.5 L Est GFR ( Amer) > 60 Est GFR (Non-Af Amer) > 60 Random Glucose 103 Calcium 8.8 Ferritin 71.6 Total Bilirubin 0.6 AST 35 ALT 23 Alkaline Phosphatase 89 Total Protein 6.3 Albumin 3.1 Globulin 3.1 Albumin/Globulin Ratio 1.0 L Assessment & Plan - Assessment and Plan (Free Text) Assessment: 63 year old female with history of beta thal minor and newly diagnosed right LE VTE provoked by recent orthopedic surgery. Plan Continue anticoagulation, may switch to eliquis 10mg PO BID x 7 days, followed by 5mg PO BID Agree with V/Q scan to evaluate for PE Vascular evaluation Would hold off on IVC filter as her anticoagulation will be short term She will need anticoagulation for up to 3 months since it is a provoked VTE Strongly advised her to pursue age appropriate cancer screening such as mammography and colonoscopy May benefit from another dose of Venofer 200mg IVPB Thank you for allowing me to partake in your patients care. Sincerely, Erik Jolley (Covering for Dr. Ayoub)
[2018-08-17] MEDS: Docusate-Senna 50 mg-8.6 mg Tab PO SCH (17:34)
--- NOTE | 2018-08-18 01:27 | PN ---
DATE: 08/17/2018 SUBJECTIVE: The patient is seen in bed, in no acute distress. The patient was seen earlier today in room 302. OBJECTIVE: VITAL SIGNS: Temperature is 98, blood pressure is 114/60, respiratory rate of 18, and heart rate of 86. HEENT: Unremarkable. NECK: Supple. LUNGS: Have decreased breath sounds. HEART: Normal S1 and S2. ABDOMEN: Soft. LABORATORY EXAMINATION: Reveals a white count of 7, hemoglobin of 8, and platelets of 398. BUN of 20 and creatinine of 0.5. Urinalysis is noted. Microbiology reveals the blood cultures are negative. Urine cultures are negative. Nares MRSA is negative. ASSESSMENT AND PLAN: This is a 63-year-old female with history of familial Mediterranean fever, osteoarthritis, status post right knee replacement, postprocedure day #7 with systemic inflammatory response syndrome, postoperative day #7, currently off of antibiotics. The patient with acute deep venous thrombosis. She is at risk for developing nosocomial infections. Aris Sol MD
[2018-08-18 07:38] LABS: BASO # 0.04 K/mm3 (0.0-2.0); BASO % 0.5 % (0.0-3.0); EOS # 0.3 (0.0-0.7); HEMOGLOBIN 8.7 g/dL (12.0-16.0); LYMPH # 1.5 (1.2-3.4); LYMPH % 19.1 % (22.0-35.0); MEAN CELL VOLUME 64.4 fl (80.0-105.0); MEAN CORPUSCULAR HEMOGLOBIN 19.3 pg (25.0-35.0); MEAN PLATELET VOLUME 8.6 fl (7.0-11.0); MONO # 0.6 (0.1-0.6); MONO % 7.5 % (1.0-6.0); RBC 4.5 10^6/uL (3.5-6.1); RED CELL DISTRIBUTION WIDTH 14.9 % (11.5-14.5); WHITE BLOOD COUNT 7.7 10^3/uL (4.5-11.0)
[2018-08-18 07:58] LABS: ALBUMIN 3.2 g/dL (3.0-4.8); ALT/SGPT 22 U/L (7-56); AST/SGOT 38 U/L (14-36); BLOOD UREA NITROGEN 21 mg/dL (7-21); CALCIUM 8.8 mg/dL (8.4-10.5); GFR NON-AFRICAN AMERICAN > 60
[2018-08-18] MEDS: Enoxaparin 100 mg Syringe SC SCH ×2 (09:55→21:21)
[2018-08-18] MEDS: Cholecalciferol 1,000 INTLU TAB PO SCH (10:08)
--- NOTE | 2018-08-18 14:08 | PN ---
DATE: 08/18/2018 SUBJECTIVE: The patient was seen and examined at bedside. She is currently not complaining of shortness of breath and she is comfortable. There are no other pulmonary complaints offered. Today, she was undergoing, according to Dr. Sol's note, lung scan for pulmonary embolism, but according to his note, clinical suspicion for pulmonary emboli was low; however, she did have deep vein thrombosis of her right lower extremity, status post total knee replacement. PHYSICAL EXAMINATION: VITAL SIGNS: Her temperature is 98.4, pulse is 70, respirations 18, pulse oximetry is 99 on room air. NECK: Supple with no jugular vein distention. CARDIOVASCULAR: S1, S2. No S3. Irregular. PULMONARY: Clear to auscultation and percussion. GASTROINTESTINAL: Soft, nontender. No organomegaly. : Within normal limits EXTREMITIES: No clubbing, cyanosis or edema. Status post total knee replacement on right. SKIN: Dry; intact NEUROLOGIC: No focal deficits. LABORATORY DATA: I do not find report of ventilation perfusion lung scan and the only report available at this time is lower extremity ultrasound. Her blood culture showed no growth. Clinically, she is doing well. ASSESSMENT: 1. Status post right knee replacement. 2. Deep vein thrombosis, right lower extremity. Clinically, low degree of suspicion for pulmonary emboli. We will discuss with Dr. Sol as well as Dr. Krishan Harris. Logan Sanchez MD MTDNasrin
[2018-08-18] MEDS: Docusate-Senna 50 mg-8.6 mg Tab PO SCH (17:32)
--- NOTE | 2018-08-18 20:28 | PN ---
PROCEDURE DATE: 08/18/2018 UPDATE REPORT LOCATION: Room 302, bed 1. SUBJECTIVE: A 63-year-old female had right total knee on 08/10/2018, and since then has developed a DVT in her posterior tibial vein below the trifurcation. She is currently on therapeutic dose of Lovenox and VQ scan showed no pulmonary embolus. We are going to start physical therapy and to continue mobilization of that right knee and at the same time make sure it does not get a hematoma from the therapeutic level of Lovenox, which if that was the case, she would have to be slowed down with therapy and possibly drain the knee and that being in the hospital for so long, she is at risk of an infection from the hospital; nosocomial type of infection, so we will try to get her out of here as soon as possible and to progress therapy at home with less chance of infection. As of yesterday, the wound was dry and put in a new Aquacel foam dressing on the knee to help combat any superficial infection. Hopefully, the knee does not have a hematoma formation from all the Lovenox, we will keep an eye on that. Krishan Harris DO
--- NOTE | 2018-08-19 02:25 | PN ---
DATE: 08/18/2018 SUBJECTIVE: The patient is in bed, in no acute distress. PHYSICAL EXAMINATION: VITAL SIGNS: On exam, temperature is 98, blood pressure is 118/70, respiratory rate of 20. HEENT: Unremarkable. NECK: Supple. LUNGS: Have decreased breath sounds. HEART: Normal S1 and S2. ABDOMEN: Soft and nontender. LABORATORY EXAMINATION: Reveals a white count of 7.7, hemoglobin of 8, BUN of 21, creatinine of 0.5. Urinalysis is noted. Microbiology reveals blood cultures are negative. Urine cultures are negative. MRSA screen is not detected and Dr. Sanchez's progress note has been reviewed. ASSESSMENT AND PLAN; This is a 63-year-old female with history of familial Mediterranean fever, ostearthritis, status post right knee replacement, postprocedure day #8 with systemic inflammatory response syndrome and acute deep venous thrombosis. Currently off of antibiotics. The patient is at risk for developing nosocomial infections. Aris Sol MD
[2018-08-19] MEDS: Cholecalciferol 1,000 INTLU TAB PO SCH (10:10)
--- NOTE | 2018-08-19 11:44 | CP.PCM.PN ---
<Wesley Grewal - Last Filed: 08/19/18 11:39> Subjective - Date & Time of Evaluation Date of Evaluation: 08/19/18 Time of Evaluation: 11:39 - Subjective Subjective: Wesley Grewal, PGY-1, Internal Medicine Progress Note for Dr. Hawkins Patient seen and evaluated at bedside. Patient had no acute overnight events. Patient reports improvement in right knee throbbing pain 4/10 and denies any other symptoms at this time. She has been tolerating physical therapy well. 12- point ROS was unremarkable except for what was mentioned above. Objective - Vital Signs/Intake and Output Vital Signs (last 24 hours): Temp Pulse Resp BP Pulse Ox 98.6 F 92 H 20 118/73 95 08/18/18 16:00 08/18/18 16:00 08/18/18 16:00 08/18/18 16:00 08/18/18 16:00 Intake and Output: 08/19/18 08/19/18 06:59 18:59 Intake Total 430 Balance 430 - Medications Medications: Current Medications Acetaminophen (Tylenol 325mg Tab) 650 mg PO Q4H PRN; Protocol PRN Reason: Fever >100.4 F Last Admin: 08/14/18 06:03 Dose: 650 mg Acetaminophen (Tylenol 325mg Tab) 975 mg PO Q8H [facility]; Protocol Last Admin: 08/19/18 08:39 Dose: 975 mg Apixaban (Eliquis) 10 mg PO BID [facility]; Protocol Stop: 08/23/18 10:01 Last Admin: 08/19/18 10:09 Dose: 10 mg Apixaban (Eliquis) 5 mg PO BID [facility]; Protocol Aspirin (Aspirin Chewable) 81 mg PO 0800 [facility]; Protocol Last Admin: 08/19/18 08:39 Dose: 81 mg Calcium Carbonate (Caltrate) 600 mg PO DAILY [facility] Last Admin: 08/19/18 10:08 Dose: 600 mg Cholecalciferol (Vitamin D) 1,000 intlu PO DAILY [facility] Last Admin: 08/19/18 10:10 Dose: 1,000 intlu Docusate Sodium (Colace) 100 mg PO BID [facility]; Protocol Last Admin: 08/19/18 10:08 Dose: 100 mg Famotidine (Pepcid) 20 mg PO 1000,2200 [facility]; Protocol Last Admin: 08/19/18 10:10 Dose: 20 mg Folic Acid (Folic Acid) 1 mg PO DAILY [facility]; Protocol Last Admin: 08/19/18 10:09 Dose: 1 mg Senna/Docusate Sodium (Senokot S 50 Mg-8.6 Mg) 1 tab PO QPM [facility]; Protocol Last Admin: 08/18/18 17:32 Dose: Not Given - Labs Labs: 08/18/18 07:20 08/18/18 07:20 - Constitutional Appears: Well, Non-toxic, No Acute Distress - Head Exam Head Exam: ATRAUMATIC, NORMAL INSPECTION, NORMOCEPHALIC - Eye Exam Eye Exam: EOMI, PERRL - ENT Exam ENT Exam: Mucous Membranes Moist - Neck Exam Neck exam: Positive for: Normal Inspection - Respiratory Exam Respiratory Exam: Clear to Auscultation Bilateral, NORMAL BREATHING PATTERN - Cardiovascular Exam Cardiovascular Exam: REGULAR RHYTHM, RRR, +S1, +S2. absent: Clicks, Gallop, Rubs - GI/Abdominal Exam GI & Abdominal Exam: Normal Bowel Sounds, Soft. absent: Distended, Firm, Guarding, Tenderness - Extremities Exam Extremities exam: Positive for: normal capillary refill, increased warmth and edema or right lower extremity Additional comments: right lower extremity fully wrapped and difficult to evaluate. patient has full ROM of foot and toes on right lower extremity. Left appears to be without any cyanosis or deformities. ROM is intact. - Neurological Exam Neurological exam: Alert, CN II-XII Intact, Oriented x3 - Skin Skin Exam: Dry, Intact, Normal Color Assessment and Plan - Assessment and Plan (Free Text) Assessment: 63 year old female with past medical history of mediterranean anemia and osteoarthritis presents status post right total knee replacement. Plan: Right tibial DVT -Confirmed with ultrasound -Well's criteria: 3 -RIETE score: 1.5. Usually used for PE, but bleeding risk is 2.8% for anticoagulation. -V/Q scan was low probability for PE -Stopped lovenox -Started loading dose of eliquis 10 mg BID Status post right knee replacement for osteoarthritis -Continue tylenol 975 Q8, tylenol 650 Q4PRN -Stopped codeine -Patient will continue rehabilitation and physical therapy at TCU -Continue to apply ice to affected area, drain management, OOB with assistance -Continue with incentive spirometry. -Vital signs Q4 -Dr. Harris, Orthopedic Surgery, consulted for further management. Febrile status post right knee replacement -Possibly secondary to postop fever -Patient is currently afebrile. -Blood culture negative for 5 days -CXR: unremarkable -UA: shows no signs of UTI -Ucx: negative -Will continue to monitor for temperature. -Stopped antibiotics for low suspicion of infection Constipation -Continue docusate 1 tab BID and senokot 1 tab QPM -Patient has had bowel movements Beta thalassemia minor vs iron deficiency anemia status post surgery -Anemia likely 2/2 to blood loss from surgery -Hemoglobin continues to be stable in 8s -Continue folic acid -Continue iron sucrose Vitamin D Deficiency -Continue cholecalciferol and calcium carbonate GI prophylaxis: pepcid DVT prophylaxis: lovenox Patient plan discussed with Dr. Hawkins. <Sanford Hawkins - Last Filed: 08/19/18 15:55> Objective - Vital Signs/Intake and Output Vital Signs (last 24 hours): Temp Pulse Resp BP Pulse Ox 97.5 F L 96 H 20 121/76 93 L 08/19/18 10:00 08/19/18 10:00 08/19/18 10:00 08/19/18 10:00 08/19/18 10:00 Intake and Output: 08/19/18 08/19/18 06:59 18:59 Intake Total 430 Balance 430 - Medications Medications: Current Medications Acetaminophen (Tylenol 325mg Tab) 650 mg PO Q4H PRN; Protocol PRN Reason: Fever >100.4 F Last Admin: 08/14/18 06:03 Dose: 650 mg Acetaminophen (Tylenol 325mg Tab) 975 mg PO Q8H [facility]; Protocol Last Admin: 08/19/18 08:39 Dose: 975 mg Apixaban (Eliquis) 10 mg PO BID [facility]; Protocol Stop: 08/23/18 10:01 Last Admin: 08/19/18 10:09 Dose: 10 mg Apixaban (Eliquis) 5 mg PO BID [facility]; Protocol Aspirin (Aspirin Chewable) 81 mg PO 0800 [facility]; Protocol Last Admin: 08/19/18 08:39 Dose: 81 mg Calcium Carbonate (Caltrate) 600 mg PO DAILY [facility] Last Admin: 08/19/18 10:08 Dose: 600 mg Cholecalciferol (Vitamin D) 1,000 intlu PO DAILY [facility] Last Admin: 08/19/18 10:10 Dose: 1,000 intlu Docusate Sodium (Colace) 100 mg PO BID [facility]; Protocol Last Admin: 08/19/18 10:08 Dose: 100 mg Famotidine (Pepcid) 20 mg PO 1000,2200 [facility]; Protocol Last Admin: 08/19/18 10:10 Dose: 20 mg Folic Acid (Folic Acid) 1 mg PO DAILY [facility]; Protocol Last Admin: 08/19/18 10:09 Dose: 1 mg Senna/Docusate Sodium (Senokot S 50 Mg-8.6 Mg) 1 tab PO QPM [facility]; Protocol Last Admin: 08/18/18 17:32 Dose: Not Given - Labs Labs: 08/18/18 07:20 08/18/18 07:20 Attending/Attestation - Attestation I have personally seen and examined this patient.: Yes I have fully participated in the care of the patient.: Yes I have reviewed all pertinent clinical information, including history, physical exam and plan: Yes Notes (Text): 08/19/18 15:49 Attending note; Patient seen and examined with resident In TCU. able to participate in physical therapy. Pain and swelling are improving slowly. Denies any fevers, chills. Wound is clean. No bleeding noted. Erythema is improved. No cellulitis noted. Patient is a 63 year old female with past medical history significant for beta thalassemia minor and bilateral knee osteoarthritis that presented to the hospital for scheduled right knee replacement 08/10/18. Patient was transferred to TCU on 08/12/18 for physical therapy. 1. Gait instability. Continue physical therapy as tolerated. 2. S/P total right knee replacement 08/10/18. Wound is clean. Swelling is improved. Pain is treated with Tylenol. 3. Acute right tibial DVT; case discussed with vascular surgery Dr. Monico Buckner in detail. Treated with Lovenox. Monitor for any bleeding. Currently patient has stable hemoglobin. No active bleeding noted. Risks and benefits of anticoagulation explained to the patient in detail. Started on p.o. Eliquis today. Patient to complete 3 months course of a nticoagulation. 4. History of beta thalassemia minor; never got transfusion before. currently patient has anemia due to acute blood loss. Started on IV iron. Hematology evaluation appreciated. 5. Pulmonary evaluation appreciated. VQ scan is low probability for PE. Patient is clinically stable. Case discussed with PMD in detail. Monitor closely in TCU.
[2018-08-19] MEDS: Docusate-Senna 50 mg-8.6 mg Tab PO SCH (17:25)
--- NOTE | 2018-08-19 21:16 | PN ---
DATE: 08/19/2018 SUBJECTIVE: The patient is seen earlier this morning. No fever. No chills. No nausea. No vomiting. PHYSICAL EXAMINATION: VITAL SIGNS: Temperature is 98, blood pressure is 120/70, and respiratory rate of 16. HEENT: Unremarkable. NECK: Supple. LUNGS: Have decreased breath sounds. HEART: Normal S1 and S2. ABDOMEN: Soft and nontender. LABORATORY DATA: Reviewed. ASSESSMENT AND PLAN: This is a 63-year-old female with history of familial Mediterranean fever, ostearthritis, status post right knee replacement, postprocedure day #9 with systemic inflammatory response syndrome, and acute deep venous thrombosis, off of antibiotics. The patient is at risk for developing nosocomial infections. Recommended to remove the heparin lock to minimize developing new infections. Aris Sol MD
[2018-08-20] MEDS: Cholecalciferol 1,000 INTLU TAB PO SCH (10:03)
--- NOTE | 2018-08-20 14:42 | PN ---
DATE: 08/20/2018 UPDATE REPORT LOCATION: Room 302, bed 1. SUBJECTIVE: She underwent a total knee replacement of the right knee on 08/10/2018. She is doing well. She did have the deep vein thrombosis. She is on Eliquis right now, but everyday she improves. She has not taken any Tylenol for pain in the last couple of days. Wound is dry. She moves it quite well, easily get it through 90 degrees flexion and ambulates on her own with a walker. I am just waiting for her to go home to decrease the chance of nosocomial infections, and I will follow her as an outpatient. We plan on keeping the sutures in for about 2-1/2 to 3 weeks because of her anemia, and she is on anticoagulants for the DVT of the right leg, and will try to be on the blood thinners for approximately six months or so, and get a repeat venous Doppler to make sure the clot did not propagate in the right leg posterior tibial vessel, so otherwise, she is improving and shows more strength and ability to ambulate everyday. Krishan Harris DO
--- NOTE | 2018-08-20 19:04 | PN ---
DATE: 08/20/2018 LOCATION: The patient is seen in [facility]. SUBJECTIVE: No fevers. No chills. No nausea. No vomiting. PHYSICAL EXAMINATION: VITAL SIGNS: Temperature is 98, blood pressure is 120/70, respiratory rate is 16. HEENT: Unremarkable. NECK: Supple. LUNGS: Have decreased breath sounds. HEART: Normal S1, S2. ABDOMEN: Soft. LABORATORY DATA: Reveals the patient's white count of 7.7, hemoglobin of 8.7. Review of the other chemistries are noted. Urinalysis is noted. MEDICATIONS: Reviewed. ASSESSMENT AND PLAN: This is a 63-year-old female who is [place] in ancestry, who has familial Mediterranean fever with ostearthritis, status post right knee replacement, developed fevers, postoperatively with systemic inflammatory response syndrome postprocedure day #10 with a diagnosis now of acute deep venous thrombosis postoperatively, currently off of antibiotics. All cultures negative. No evidence of infection, however, recommended to remove the heparin lock from her hand since it is not being used to minimize development of new infections. Aris Sol MD
[2018-08-21 07:21] LABS: BASO # 0.03 K/mm3 (0.0-2.0); BASO % 0.4 % (0.0-3.0); EOS # 0.1 (0.0-0.7); EOS % 1.6 % (1.5-5.0); HEMOGLOBIN 8.5 g/dL (12.0-16.0); LYMPH # 1.7 (1.2-3.4); LYMPH % 21.9 % (22.0-35.0); MEAN CELL VOLUME 65.2 fl (80.0-105.0); MEAN CORPUSCULAR HEMOGLOBIN 19.5 pg (25.0-35.0); MEAN CORPUSCULAR HGB CONC 29.8 g/dl (31.0-37.0); MEAN PLATELET VOLUME 8.7 fl (7.0-11.0); MONO # 0.9 (0.1-0.6); RBC 4.37 10^6/uL (3.5-6.1); RED CELL DISTRIBUTION WIDTH 15.7 % (11.5-14.5); WHITE BLOOD COUNT 7.7 10^3/uL (4.5-11.0)
[2018-08-21 07:36] LABS: ALB/GLOB RATIO 1.1 (1.1-1.8); ALBUMIN 3.3 g/dL (3.0-4.8); ALT/SGPT 36 U/L (7-56); AST/SGOT 69 U/L (14-36); BLOOD UREA NITROGEN 25 mg/dL (7-21); CALCIUM 8.6 mg/dL (8.4-10.5); GFR NON-AFRICAN AMERICAN > 60
[2018-08-21] MEDS: Cholecalciferol 1,000 INTLU TAB PO SCH (09:43)
--- NOTE | 2018-08-21 12:02 | CP.PCM.PN ---
<Luz Israel - Last Filed: 08/21/18 11:57> Subjective - Date & Time of Evaluation Date of Evaluation: 08/21/18 Time of Evaluation: 11:57 - Subjective Subjective: INTERNAL MEDICINE PROGRESS NOTE FOR DR. MACEY Israel PGY1 Pt seen and examined at bedside this am. No acute events overnight. Pt resting comfortably with R leg dressing in place, denying ROS. Objective - Vital Signs/Intake and Output Vital Signs (last 24 hours): Temp Pulse Resp BP Pulse Ox 98.8 F 91 H 20 111/73 97 08/20/18 16:00 08/20/18 16:00 08/20/18 16:00 08/20/18 16:00 08/20/18 16:00 - Medications Medications: Current Medications Acetaminophen (Tylenol 325mg Tab) 650 mg PO Q4H PRN; Protocol PRN Reason: Fever >100.4 F Last Admin: 08/14/18 06:03 Dose: 650 mg Acetaminophen (Tylenol 325mg Tab) 975 mg PO Q8H [facility]; Protocol Last Admin: 08/21/18 07:56 Dose: Not Given Apixaban (Eliquis) 10 mg PO BID [facility]; Protocol Stop: 08/23/18 10:01 Last Admin: 08/21/18 09:42 Dose: 10 mg Apixaban (Eliquis) 5 mg PO BID [facility]; Protocol Aspirin (Aspirin Chewable) 81 mg PO 0800 [facility]; Protocol Last Admin: 08/21/18 07:56 Dose: 81 mg Calcium Carbonate (Caltrate) 600 mg PO DAILY [facility] Last Admin: 08/21/18 09:41 Dose: 600 mg Cholecalciferol (Vitamin D) 1,000 intlu PO DAILY [facility] Last Admin: 08/21/18 09:43 Dose: 1,000 intlu Docusate Sodium (Colace) 100 mg PO BID [facility]; Protocol Last Admin: 08/21/18 09:42 Dose: 100 mg Famotidine (Pepcid) 20 mg PO 1000,2200 [facility]; Protocol Last Admin: 08/21/18 09:43 Dose: 20 mg Folic Acid (Folic Acid) 1 mg PO DAILY [facility]; Protocol Last Admin: 08/21/18 09:43 Dose: 1 mg Senna/Docusate Sodium (Senokot S 50 Mg-8.6 Mg) 1 tab PO QPM [facility]; Protocol Last Admin: 08/19/18 17:25 Dose: 1 tab - Labs Labs: 08/21/18 07:00 08/21/18 07:00 - Constitutional Appears: Well, Non-toxic, No Acute Distress - Head Exam Head Exam: ATRAUMATIC, NORMAL INSPECTION, NORMOCEPHALIC - Eye Exam Eye Exam: EOMI, PERRL - ENT Exam ENT Exam: Mucous Membranes Moist - Neck Exam Neck exam: Positive for: Normal Inspection - Respiratory Exam Respiratory Exam: Clear to Auscultation Bilateral, NORMAL BREATHING PATTERN - Cardiovascular Exam Cardiovascular Exam: REGULAR RHYTHM, RRR, +S1, +S2. absent: Clicks, Gallop, Rubs - GI/Abdominal Exam GI & Abdominal Exam: Normal Bowel Sounds, Soft. absent: Distended, Firm, Guarding, Tenderness - Extremities Exam Extremities exam: Positive for: normal capillary refill, increased warmth and edema or right lower extremity Additional comments: right lower extremity fully wrapped and difficult to evaluate. patient has full ROM of foot and toes on right lower extremity. Left appears to be without any cyanosis or deformities. ROM is intact. - Neurological Exam Neurological exam: Alert, CN II-XII Intact, Oriented x3 - Skin Skin Exam: Dry, Intact, Normal Color Assessment and Plan - Assessment and Plan (Free Text) Assessment: 63 year old female with past medical history of mediterranean anemia and osteoarthritis presents status post right total knee replacement. Plan: Right tibial DVT -Confirmed with ultrasound, Wells criteria: 3,RIETE score: 1.5. Usually used for PE, but bleeding risk is 2.8% for anticoagulation. -V/Q scan was low probability for PE - Case discussed with vascular surgery Dr. Monico Buckner in detail, initially treated with lovenox, now stopped -Continue loading dose eliquis 10 mg BID - Pt to be discharged on eliquis 5mg bid x 3 months - Benefits/risks of anticoagulation explained to patient. Bleeding risk explained. Pt demonstrated understanding Gait instability s/p right knee replacement for osteoarthritis -Continue tylenol 975 Q8, tylenol 650 Q4PRN -Patient will continue rehabilitation and physical therapy at TCU as tolerated -Continue to apply ice to affected area, drain management, OOB with assistance -Continue with incentive spirometry. -Vital signs Q4 -Dr. Harris, Orthopedic Surgery, consulted for further management. Febrile status post right knee replacement -Possibly secondary to postop fever -Patient is currently afebrile. -Blood culture negative for 5 days -CXR: unremarkable -UA: shows no signs of UTI -Ucx: negative -Will continue to monitor for temperature. -Stopped antibiotics for low suspicion of infection Constipation -Continue docusate 1 tab BID and senokot 1 tab QPM -Patient has had bowel movements Beta thalassemia minor vs iron deficiency anemia status post surgery -Anemia likely 2/2 to blood loss from surgery. No previous transfusions -Hemoglobin continues to be stable in 8s -Continue folic acid -Continue iron sucrose - Benefits/risks of anticoagulation explained to patient. Bleeding risk explained. Pt demonstrated understanding Vitamin D Deficiency -Continue cholecalciferol and calcium carbonate GI prophylaxis: pepcid DVT prophylaxis: lovenox Patient plan discussed with Dr. Hawkins. Luz Israel PGY1 <Sanford Hawkins - Last Filed: 08/21/18 14:03> Objective - Vital Signs/Intake and Output Vital Signs (last 24 hours): Temp Pulse Resp BP Pulse Ox 98.8 F 91 H 20 111/73 97 08/20/18 16:00 08/20/18 16:00 08/20/18 16:00 08/20/18 16:00 08/20/18 16:00 - Medications Medications: Current Medications Acetaminophen (Tylenol 325mg Tab) 650 mg PO Q4H PRN; Protocol PRN Reason: Fever >100.4 F Last Admin: 08/14/18 06:03 Dose: 650 mg Acetaminophen (Tylenol 325mg Tab) 975 mg PO Q8H [facility]; Protocol Last Admin: 08/21/18 07:56 Dose: Not Given Apixaban (Eliquis) 10 mg PO BID [facility]; Protocol Stop: 08/23/18 10:01 Last Admin: 08/21/18 09:42 Dose: 10 mg Apixaban (Eliquis) 5 mg PO BID [facility]; Protocol Aspirin (Aspirin Chewable) 81 mg PO 0800 [facility]; Protocol Last Admin: 08/21/18 07:56 Dose: 81 mg Calcium Carbonate (Caltrate) 600 mg PO DAILY [facility] Last Admin: 08/21/18 09:41 Dose: 600 mg Cholecalciferol (Vitamin D) 1,000 intlu PO DAILY [facility] Last Admin: 08/21/18 09:43 Dose: 1,000 intlu Docusate Sodium (Colace) 100 mg PO BID [facility]; Protocol Last Admin: 08/21/18 09:42 Dose: 100 mg Famotidine (Pepcid) 20 mg PO 1000,2200 [facility]; Protocol Last Admin: 08/21/18 09:43 Dose: 20 mg Folic Acid (Folic Acid) 1 mg PO DAILY [facility]; Protocol Last Admin: 08/21/18 09:43 Dose: 1 mg Polyethylene Glycol (Miralax) 17 gm PO BID [facility]; Protocol Senna/Docusate Sodium (Senokot S 50 Mg-8.6 Mg) 1 tab PO QPM [facility]; Protocol Last Admin: 08/19/18 17:25 Dose: 1 tab - Labs Labs: 08/21/18 07:00 08/21/18 07:00 Attending/Attestation - Attestation I have personally seen and examined this patient.: Yes I have fully participated in the care of the patient.: Yes I have reviewed all pertinent clinical information, including history, physical exam and plan: Yes Notes (Text): Attending note; Patient seen and examined with resident In TCU. Right knee Pain and swelling improved significantly. Denies any fevers, chills. Wound is clean. No bleeding noted. Erythema is improved. No cellulitis noted. Patient is a 63 year old female with past medical history significant for beta thalassemia minor and bilateral knee osteoarthritis that presented to the hospital for scheduled right knee replacement 08/10/18. Patient was transferred to TCU on 08/12/18 for physical therapy. 1. Gait instability. Continue physical therapy as tolerated. 2. S/P total right knee replacement 08/10/18. Wound is clean. Swelling is improved. Pain is treated with Tylenol. 3. Acute right tibial DVT; on p.o. Eliquis . Patient to complete 3 months course of anticoagulation. Repeat ultrasound ordered. 4. History of beta thalassemia minor; never got transfusion before. currently patient has anemia due to acute blood loss. Started on IV iron. Hematology evaluation appreciated. Needs follow-up with as outpatient. 5. Pulmonary evaluation appreciated. VQ scan is low probability for PE. Patient is clinically stable. 6. Constipation; currently on Colace and senna . MiraLAX added . Case discussed with PMD Dr.Mutterperl in detail. Monitor closely in TCU. Plan for discharge tomorrow. 08/21/18 14:02
[2018-08-21] MEDS: POLYETHYLENE GLYCOL 3350 17 GM/Dose PACKET PO SCH ×2 (14:11→18:00)
[2018-08-21 16:18] VITALS: BP 111/70; PULSE 87; RESP 18; TEMP 97.6; O2SAT 98
--- NOTE | 2018-08-22 00:33 | PN ---
DATE: 08/21/2018 SUBJECTIVE: The patient is seen in bed, in no acute distress. PHYSICAL EXAMINATION: VITAL SIGNS: Temperature is 98, blood pressure is 111/70, respiratory rate of 20, heart rate of 87. HEENT: Unremarkable. NECK: Supple. LUNGS: Have decreased breath sounds. HEART: Normal S1 and S2. ABDOMEN: Soft. LABORATORY EXAMINATION: Reveals a white count of 7.7, hemoglobin of 8, platelets of 484. Chemistries are noted. BUN of 25, creatinine of 0.5. Urinalysis is noted. Microbiology is reviewed. Review of orders reveals the patient is off of antibiotics. ASSESSMENT AND PLAN: This is a 63-year-old female with who is a [place] origin with a familial Mediterranean fever, osteoarthritis, status post right knee replacement, developed fevers postoperatively with systemic inflammatory response syndrome, postprocedure day #11, secondary to acute deep venous thrombosis, off of antibiotics. The patient is at risk for developing nosocomial infections. Aris Sol MD
[2018-08-22] MEDS: Cholecalciferol 1,000 INTLU TAB PO SCH (09:30)
[2018-08-22] MEDS: POLYETHYLENE GLYCOL 3350 17 GM/Dose PACKET PO SCH (09:30)
--- NOTE | 2018-08-22 12:01 | CP.PCM.DIS ---
<Xochilt Vargas L - Last Filed: 08/22/18 14:55> Provider - Provider Date of Admission: 08/12/18 16:26 Attending physician: Sanford Hawkins MD Primary care physician: Silviano Kerr MD Consults: 08/12/18 16:54 Physician Consult Routine Comment: Consulting Provider: Krishan Harris Consulting Physician: Krishan Harris Reason for Consult: S/P R TOTAL KNEE REPLACEMENT 08/14/18 07:24 Infectious Disease Consult Routine Comment: Consulting Provider: Moises Reid Consulting Physician: Moises Reid Reason for Consult: postop fever 08/15/18 16:16 Physician Consult Routine Comment: Consulting Provider: Monico Buckner Consulting Physician: Monico Buckner Reason for Consult: posterior tibial vein is +dvt 08/16/18 07:01 Consult [Physician Consult] Routine Comment: Calf DVT post op R leg Consulting Provider: Victor M Singh Consulting Physician: Victor M Singh Reason for Consult: DVT calf, R leg, post op 08/16/18 13:39 Consult [Physician Consult] Routine Comment: Consulting Provider: Winsome Ayoub Consulting Physician: Winsome Ayoub Reason for Consult: beta thalasemia, dvt post knee surgery for anticoag eval Time Spent in preparation of Discharge (in minutes): 35 Diagnosis - Discharge Diagnosis (1) Status post total knee replacement Status: Acute (2) DVT (deep venous thrombosis) Status: Acute Hospital Course - Lab Results Lab Results: Micro Results 08/14/18 20:20 Blood Blood Culture - Final NO GROWTH AFTER 5 DAYS 08/14/18 20:20 Blood Gram Stain - Final TEST NOT PERFORMED 08/14/18 20:44 Blood Blood Culture - Final NO GROWTH AFTER 5 DAYS 08/14/18 20:44 Blood Gram Stain - Final TEST NOT PERFORMED 08/14/18 21:00 Naris MRSA Culture (Admit) - Final MRSA NOT DETECTED 08/15/18 03:45 Urine,Clean Catch Urine Culture - Final No Growth (<1,000 CFU/ML) 08/13/18 08:51 Urine,Clean Catch Urine Culture - Final No Growth (<1,000 CFU/ML) Most Recent Lab Values WBC 7.7 10^3/uL (4.5-11.0) 05/04/19 07:00 RBC 4.37 10^6/uL (3.5-6.1) 08/21/18 07:00 Hgb 8.5 g/dL (12.0-16.0) L 08/21/18 07:00 Hct 28.5 % (36.0-48.0) L 08/21/18 07:00 MCV 65.2 fl (80.0-105.0) L 08/21/18 07:00 MCH 19.5 pg (25.0-35.0) L 08/21/18 07:00 MCHC 29.8 g/dl (31.0-37.0) L 08/21/18 07:00 RDW 15.7 % (11.5-14.5) H 08/21/18 07:00 Plt Count 484 10^3/uL (120.0-450.0) H 08/21/18 07:00 MPV 8.7 fl (7.0-11.0) 08/21/18 07:00 Neut % (Auto) 65.1 % (50.0-68.0) 08/21/18 07:00 Lymph % (Auto) 21.9 % (22.0-35.0) L 08/21/18 07:00 [place] % (Auto) 11.0 % (1.0-6.0) H 08/21/18 07:00 Eos % (Auto) 1.6 % (1.5-5.0) 08/21/18 07:00 Baso % (Auto) 0.4 % (0.0-3.0) 08/21/18 07:00 Lymph # (Auto) 1.7 (1.2-3.4) 08/21/18 07:00 [place] # (Auto) 0.9 (0.1-0.6) H 08/21/18 07:00 Eos # (Auto) 0.1 (0.0-0.7) 08/21/18 07:00 Baso # (Auto) 0.03 K/mm3 (0.0-2.0) 08/21/18 07:00 Absolute Neuts (auto) 5.04 (1.4-6.5) 08/21/18 07:00 Retic Count 1.20 % (0.5-1.5) 08/16/18 07:00 Sodium 138 mmol/L (132-148) 08/21/18 07:00 Potassium 4.1 mmol/L (3.6-5.0) 08/21/18 07:00 Chloride 104 mmol/L (98-107) 08/21/18 07:00 Carbon Dioxide 31 mmol/L (21-33) 08/21/18 07:00 Anion Gap 8 (10-20) L 08/21/18 07:00 BUN 25 mg/dL (7-21) H 08/21/18 07:00 Creatinine 0.5 mg/dl (0.7-1.2) L 08/21/18 07:00 Est GFR ( Amer) > 60 08/21/18 07:00 Est GFR (Non-Af Amer) > 60 08/21/18 07:00 Random Glucose 108 mg/dL (70-110) 08/21/18 07:00 Calcium 8.6 mg/dL (8.4-10.5) 08/21/18 07:00 Magnesium 1.9 mg/dL (1.7-2.2) 08/16/18 08:39 Iron 35 ug/dL (45-180) L 08/16/18 08:39 TIBC 260 ug/dL (265-497) L 08/16/18 08:39 % Saturation 14 % (20-55) L 08/16/18 08:39 Ferritin 71.6 ng/mL 08/16/18 08:39 Total Bilirubin 0.6 mg/dL (0.2-1.3) 08/21/18 07:00 AST 69 U/L (14-36) H D 08/21/18 07:00 ALT 36 U/L (7-56) 08/21/18 07:00 Alkaline Phosphatase 73 U/L (38-126) 08/21/18 07:00 Lactate Dehydrogenase 544 U/L (333-699) 08/16/18 08:39 Total Protein 6.3 g/dL (5.8-8.3) 08/21/18 07:00 Albumin 3.3 g/dL (3.0-4.8) 08/21/18 07:00 Globulin 3.0 gm/dL 08/21/18 07:00 Albumin/Globulin Ratio 1.1 (1.1-1.8) 08/21/18 07:00 Procalcitonin 0.06 NG/ML (0.19-0.49) L 08/14/18 07:00 Urine Color Dark yellow (YELLOW) 08/15/18 03:45 Urine Appearance Clear (CLEAR) 08/15/18 03:45 Urine pH 6.0 (4.7-8.0) 08/15/18 03:45 Ur Specific [place] 1.025 (1.005-1.035) 08/15/18 03:45 Urine Protein 30 mg/dL (<30 mg/dL) H 08/15/18 03:45 Urine Glucose (UA) Negative mg/dL (NEGATIVE) 08/15/18 03:45 Urine Ketones Negative mg/dL (NEGATIVE) 08/15/18 03:45 Urine Blood Large (NEGATIVE) H 08/15/18 03:45 Urine Nitrate Negative (NEGATIVE) 08/15/18 03:45 Urine Bilirubin Small (NEGATIVE) H 08/15/18 03:45 Urine Urobilinogen 1.0 E.U./dL (<1 E.U./dL) H 08/15/18 03:45 Ur Leukocyte Esterase Negative Desirae/uL (NEGATIVE) 08/15/18 03:45 Urine RBC 15 - 20 /hpf (0-2) H 08/15/18 03:45 Urine WBC 0 - 2 /hpf (0-6) 08/15/18 03:45 Ur Epithelial Cells 1 - 3 /hpf (0-5) 08/15/18 03:45 Amorphous Sediment Few /hpf (NONE) 08/13/18 08:51 Urine Bacteria Many /hpf (NONE) 08/13/18 08:51 Urine Other Uyeast /hpf 08/13/18 08:51 - Hospital Course Hospital Course: On admission: 63 year old female with past medical history of mediterranean anemia and osteoarthritis presents status post right total knee replacement. Dr. Harris wanted the patient to be admitted for observation and possible admission to TCU. Patient has had a history of severe osteoarthritis and had left total knee placement 12 years ago. During hospital stay: Patient was noted to be febrile during admission. Vancomycin and cefepime were administered. Chest X-ray, urinalysis, urine culture were done and were unremarkable. Fever resolved. Patient was continued on physical therapy for gait instability and given Tylenol PRN for pain. Patient was discharged to transitional care unit for continued physical therapy. Patient was found to have right tibial DVT confirmed by venous dopplers. V/Q scan was low probability for pulmonary embolism. Case was discussed with vascular surgery Dr. Monico Buckner. Patient was initially treated with Lovenox, then switched to eliquis with an initial loading dose. Patient was also continued on folic acid and iron sucrose for anemia. Hemoglobin remained stable throughout admission. Patient was continued on cholecalciferol and calcium carbonate for Vitamin D deficiency. Patient improved clinically and was optimized for discharge. Please see EMR for full summary. Discharge Exam - Additional Findings Additional findings: - Constitutional Appears: Well, Non-toxic, No Acute Distress - Head Exam Head Exam: ATRAUMATIC, NORMOCEPHALIC - Eye Exam Eye Exam: EOMI, Normal Appearance - ENT Exam ENT Exam: Mucous Membranes Moist - Neck Exam Neck exam: Positive for: Normal Inspection - Respiratory Exam Respiratory Exam: Clear to Auscultation Bilateral, NORMAL BREATHING PATTERN - Cardiovascular Exam Cardiovascular Exam: REGULAR RHYTHM, +S1, +S2. absent: Clicks, Gallop, Rubs - GI/Abdominal Exam GI & Abdominal Exam: Normal Bowel Sounds, Soft. absent: Distended, Firm, Guarding, Tenderness - Extremities Exam Extremities exam: Positive for: normal capillary refill, increased warmth and edema or right lower extremity Additional comments: right lower extremity fully wrapped full ROM of foot and toes on right lower extremity - Neurological Exam Neurological exam: Alert, CN II-XII Intact, Oriented x3 - Skin Skin Exam: Dry, Intact, Normal Color Discharge Plan - Discharge Medications Prescriptions: Apixaban [Eliquis] 5 mg PO BID 30 Days #60 tab Apixaban [Eliquis] 10 mg PO ONCE 1 Days #1 tab Ferrous Sulfate [Feosol] 324 mg PO BID 30 Days #60 ect Polyethylene Glycol 3350 [Miralax] 17 g PO BID 10 Days ml - Follow Up Plan Condition: GOOD Disposition: HOME/ ROUTINE Instructions: Total Knee Replacement (DC), Deep Vein Thrombosis (Blood Clots in the Legs) (DC), Apixaban Additional Instructions: Please take the 10 mg eliquis on Thursday evening, then eliquis 5 mg twice a day until you see Dr. Bain or Dr. Kerr for refills. Please see Dr. Kerr in 3-5 days. Follow up with Dr. aBin and Dr. Smith. Resume the rest of your home medications. Continue with home oxygen. If your symptoms return or you experience new symptoms, go to the nearest ED or call 911. Referrals: Winsome Ayoub MD [Staff Provider] - Krishan Harris DO [Staff Provider] - Silviano Kerr MD [Primary Care Provider] - <Sanford Hawkins - Last Filed: 08/22/18 18:18> Provider - Provider Date of Admission: 08/12/18 16:26 Attending physician: Sanford Hawkins MD Primary care physician: Silviano Kerr MD Consults: 08/12/18 16:54 Physician Consult Routine Comment: Consulting Provider: Krishan Harris Consulting Physician: Krishan Harris Reason for Consult: S/P R TOTAL KNEE REPLACEMENT 08/14/18 07:24 Infectious Disease Consult Routine Comment: Consulting Provider: Moises Reid Consulting Physician: Moises Reid Reason for Consult: postop fever 08/15/18 16:16 Physician Consult Routine Comment: Consulting Provider: Monico Buckner Consulting Physician: Monico Buckner Reason for Consult: posterior tibial vein is +dvt 08/16/18 07:01 Consult [Physician Consult] Routine Comment: Calf DVT post op R leg Consulting Provider: Victor M Singh Consulting Physician: Victor M Singh Reason for Consult: DVT calf, R leg, post op 08/16/18 13:39 Consult [Physician Consult] Routine Comment: Consulting Provider: Winsome Ayoub Consulting Physician: Winsome Ayoub Reason for Consult: beta thalasemia, dvt post knee surgery for [facility] Hospital Course - Lab Results Lab Results: Micro Results 08/14/18 20:20 Blood Blood Culture - Final NO GROWTH AFTER 5 DAYS 08/14/18 20:20 Blood Gram Stain - Final TEST NOT PERFORMED 08/14/18 20:44 Blood Blood Culture - Final NO GROWTH AFTER 5 DAYS 08/14/18 20:44 Blood Gram Stain - Final TEST NOT PERFORMED 08/14/18 21:00 Naris MRSA Culture (Admit) - Final MRSA NOT DETECTED 08/15/18 03:45 Urine,Clean Catch Urine Culture - Final No Growth (<1,000 CFU/ML) 08/13/18 08:51 Urine,Clean Catch Urine Culture - Final No Growth (<1,000 CFU/ML) Most Recent Lab Values WBC 7.7 10^3/uL (4.5-11.0) 08/21/18 07:00 RBC 4.37 10^6/uL (3.5-6.1) 08/21/18 07:00 Hgb 8.5 g/dL (12.0-16.0) L 08/21/18 07:00 Hct 28.5 % (36.0-48.0) L 08/21/18 07:00 MCV 65.2 fl (80.0-105.0) L 08/21/18 07:00 MCH 19.5 pg (25.0-35.0) L 08/21/18 07:00 MCHC 29.8 g/dl (31.0-37.0) L 08/21/18 07:00 RDW 15.7 % (11.5-14.5) H 08/21/18 07:00 Plt Count 484 10^3/uL (120.0-450.0) H 08/21/18 07:00 MPV 8.7 fl (7.0-11.0) 08/21/18 07:00 Neut % (Auto) 65.1 % (50.0-68.0) 08/21/18 07:00 Lymph % (Auto) 21.9 % (22.0-35.0) L 08/21/18 07:00 [place] % (Auto) 11.0 % (1.0-6.0) H 08/21/18 07:00 Eos % (Auto) 1.6 % (1.5-5.0) 08/21/18 07:00 Baso % (Auto) 0.4 % (0.0-3.0) 08/21/18 07:00 Lymph # (Auto) 1.7 (1.2-3.4) 08/21/18 07:00 [place] # (Auto) 0.9 (0.1-0.6) H 08/21/18 07:00 Eos # (Auto) 0.1 (0.0-0.7) 08/21/18 07:00 Baso # (Auto) 0.03 K/mm3 (0.0-2.0) 08/21/18 07:00 Absolute Neuts (auto) 5.04 (1.4-6.5) 08/21/18 07:00 Retic Count 1.20 % (0.5-1.5) 08/16/18 07:00 Sodium 138 mmol/L (132-148) 08/21/18 07:00 Potassium 4.1 mmol/L (3.6-5.0) 08/21/18 07:00 Chloride 104 mmol/L (98-107) 08/21/18 07:00 Carbon Dioxide 31 mmol/L (21-33) 08/21/18 07:00 Anion Gap 8 (10-20) L 08/21/18 07:00 BUN 25 mg/dL (7-21) H 08/21/18 07:00 Creatinine 0.5 mg/dl (0.7-1.2) L 08/21/18 07:00 Est GFR ( Amer) > 60 08/21/18 07:00 Est GFR (Non-Af Amer) > 60 08/21/18 07:00 Random Glucose 108 mg/dL (70-110) 08/21/18 07:00 Calcium 8.6 mg/dL (8.4-10.5) 08/21/18 07:00 Magnesium 1.9 mg/dL (1.7-2.2) 08/16/18 08:39 Iron 35 ug/dL (45-180) L 08/16/18 08:39 TIBC 260 ug/dL (265-497) L 08/16/18 08:39 % Saturation 14 % (20-55) L 08/16/18 08:39 Ferritin 71.6 ng/mL 08/16/18 08:39 Total Bilirubin 0.6 mg/dL (0.2-1.3) 08/21/18 07:00 AST 69 U/L (14-36) H D 08/21/18 07:00 ALT 36 U/L (7-56) 08/21/18 07:00 Alkaline Phosphatase 73 U/L (38-126) 08/21/18 07:00 Lactate Dehydrogenase 544 U/L (333-699) 08/16/18 08:39 Total Protein 6.3 g/dL (5.8-8.3) 08/21/18 07:00 Albumin 3.3 g/dL (3.0-4.8) 08/21/18 07:00 Globulin 3.0 gm/dL 08/21/18 07:00 Albumin/Globulin Ratio 1.1 (1.1-1.8) 08/21/18 07:00 Procalcitonin 0.06 NG/ML (0.19-0.49) L 08/14/18 07:00 Urine Color Dark yellow (YELLOW) 08/15/18 03:45 Urine Appearance Clear (CLEAR) 08/15/18 03:45 Urine pH 6.0 (4.7-8.0) 08/15/18 03:45 Ur Specific [place] 1.025 (1.005-1.035) 08/15/18 03:45 Urine Protein 30 mg/dL (<30 mg/dL) H 08/15/18 03:45 Urine Glucose (UA) Negative mg/dL (NEGATIVE) 08/15/18 03:45 Urine Ketones Negative mg/dL (NEGATIVE) 08/15/18 03:45 Urine Blood Large (NEGATIVE) H 08/15/18 03:45 Urine Nitrate Negative (NEGATIVE) 08/15/18 03:45 Urine Bilirubin Small (NEGATIVE) H 08/15/18 03:45 Urine Urobilinogen 1.0 E.U./dL (<1 E.U./dL) H 08/15/18 03:45 Ur Leukocyte Esterase Negative [place]ae/uL (NEGATIVE) 08/15/18 03:45 Urine RBC 15 - 20 /hpf (0-2) H 08/15/18 03:45 Urine WBC 0 - 2 /hpf (0-6) 08/15/18 03:45 Ur Epithelial Cells 1 - 3 /hpf (0-5) 08/15/18 03:45 Amorphous Sediment Few /hpf (NONE) 08/13/18 08:51 Urine Bacteria Many /hpf (NONE) 08/13/18 08:51 Urine Other Uyeast /hpf 08/13/18 08:51 Attending/Attestation - Attestation I have personally seen and examined this patient.: Yes I have fully participated in the care of the patient.: Yes I have reviewed all pertinent clinical information, including history, physical exam and plan: Yes Notes (Text): 08/22/18 18:17 Attending note; Patient seen and examined with resident In TCU. Right knee Pain and swelling improved significantly. Denies any fevers, chills. Wound is clean. No bleeding noted. Erythema is improved. No cellulitis noted. Patient is a 63 year old female with past medical history significant for beta thalassemia minor and bilateral knee osteoarthritis that presented to the hospital for scheduled right knee replacement 08/10/18. Patient was transferred to TCU on 08/12/18 for physical therapy. 1. Gait instability. Continue physical therapy as tolerated. 2. S/P total right knee replacement 08/10/18. Wound is clean. Swelling is improved. Pain is treated with Tylenol. 3. Acute right tibial DVT; on p.o. Eliquis . Patient to complete 3 months course of anticoagulation. Repeat ultrasound done. Preliminary result shows partial flow. Official results pending . 4. History of beta thalassemia minor; never got transfusion before. currently patient has anemia due to acute blood loss. Started on IV iron. Hematology evaluation appreciated. Needs follow-up with as outpatient. 5. Pulmonary evaluation appreciated. VQ scan is low probability for PE. Patient is clinically stable. 6. Constipation; currently on Colace and senna . MiraLAX added . Discharge home today. Follow-up with PMD Dr. Kerr. Follow up with oncology Dr. Ayoub. Patient also will follow up with Dr. Harris orthopedics.
--- NOTE | 2018-08-22 20:50 | PN ---
DATE: 08/22/2018 SUBJECTIVE: The patient is in bed, in no acute distress. No nausea and no vomiting. PHYSICAL EXAMINATION: VITAL SIGNS: Temperature is 98, blood pressure is 111/70, and respiratory rate of 18. HEENT: Unremarkable. NECK: Supple. LUNGS: Have decreased breath sounds. HEART: Normal S1 and S2. ABDOMEN: Soft. LABORATORY DATA: Reveals a white count of 7.7 and hemoglobin of 8. ASSESSMENT AND PLAN: This is a 63-year-old female, who is originally of [place] origin, with diagnoses of familial Mediterranean fever and osteoarthritis, who had a right knee replacement and developed fevers postoperatively and was diagnosed with systemic inflammatory response syndrome on postprocedure day #12. The patient had acute deep venous thrombosis and currently off of antibiotics. She is instructed to return to medical care and I have asked her to call me if she develops any fevers or any chills. She is for discharge today. Aris Sol MD
--- NOTE | 2018-08-23 01:13 | DS ---
Orthopedic discharge report for Shima Rivas from TCU. HISTORY OF PRESENT ILLNESS: A 63-year-old female underwent right total knee replacement approximately on 08/13/2018 for arthritis of her right knee. She did well, went to TCU, and she did develop a deep vein thrombosis of the calf, pain not proximal to the popliteal vein. She is ambulating well. The wound is dry. She had a recent venous Doppler, I do not have the results, which is no undue swelling of the lower extremity right or left. She is walking well with a walker. She will be going home today and she will have visiting nurse and therapist at her home visits and I will see her to take out her shoe just the wound is dry. We will take the sutures out and about 2-1/2 weeks from the surgery. Otherwise, the patient is doing well, we will just keep an eye on the DVT to make sure does an extended into the thigh. She is on Eliquis 5 mg p.o. b.i.d. for DVT therapeutic treatment and there is a mild pain medication narcotic. Krishan Harris DO
--- NOTE | 2018-08-23 09:26 | US ---
PROCEDURE: Right lower extremity venous US HISTORY: Leg pain and swelling. Evaluate for DVT. PHYSICIAN(S): Monico Buckner M.D. TECHNIQUE: Duplex sonography and color-flow Doppler with graded compression were used to evaluate the deep venous system of the right lower extremity. FINDINGS: Occlusive thrombus is noted in the paired right posterior tibial veins. The right popliteal vein, right femoral vein, and right common femoral vein are patent and compressible. IMPRESSION: 1. Isolated right tibial DVT. Follow-up ultrasound in 7-10 days is recommended
== END 2018-08-22 14:37 | disposition home or self-care (01) | DRG 92 ==
LOC: TRCU 16:26
PROVIDERS: ADMIT Hospitalist; ATTEND Internal Medicine
PROC: F07Z9FZ Gait Training/Functional Ambulation Treatment using Assistive, Adaptive, Supportive or Protective Equipment (ICD-10-PCS; principal; 2018-08-14)
PROC: F07L6YZ Therapeutic Exercise Treatment of Musculoskeletal System - Lower Back / Lower Extremity using Other Equipment (ICD-10-PCS; 2018-08-14)
PROC: F07Z5ZZ Bed Mobility Treatment (ICD-10-PCS; 2018-08-14)
PROC: F07Z8ZZ Transfer Training Treatment (ICD-10-PCS; 2018-08-14)
PROC: F08Z2FZ Grooming/Personal Hygiene Treatment using Assistive, Adaptive, Supportive or Protective Equipment (ICD-10-PCS; 2018-08-18)
PROC: F08Z1FZ Dressing Techniques Treatment using Assistive, Adaptive, Supportive or Protective Equipment (ICD-10-PCS; 2018-08-18)
DX: R26.89 Other abnormalities of gait and mobility (principal); I82.441 Acute embolism and thrombosis of right tibial vein; D62 Acute posthemorrhagic anemia; D56.3 Thalassemia minor; E55.9 Vitamin D deficiency, unspecified; R50.82 Postprocedural fever; K59.00 Constipation, unspecified; M17.0 Bilateral primary osteoarthritis of knee; Z96.653 Presence of artificial knee joint, bilateral; Z79.01 Long term (current) use of anticoagulants; Z87.39 Personal history of other diseases of the musculoskeletal system and connective tissue

== ENCOUNTER 2018-08-16 16:47 | Outpatient (CLI) | payer OTHER | END 2018-08-16 16:48 | disposition home or self-care (01) | LOC: RAD 16:47 ==

== ENCOUNTER 2018-08-17 09:00 | Outpatient (CLI) | payer OTHER | END 2018-08-17 09:01 | disposition home or self-care (01) | LOC: RAD 09:00 ==

== ENCOUNTER 2018-09-15 16:36 | Emergency (ER) | payer OTHER ==
[2018-09-15 16:37] VITALS: BMI 36.6
[2018-09-15 17:12] VITALS: TEMP 98.6
[2018-09-15] MEDS ORDERED: Tmp-Smz 800 mg-160 mg DS Tab PO STA (17:59)
--- NOTE | 2018-09-15 18:14 | ED PDOC ---
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 Patient is being followed by Dr. Harris at home for infection of the leg. Patient has been on Augmentin at home for the past 8 days. Patient states that today the physical therapist thought that the wound on the anterior aspect of the right knee looked more red than it had in the past. She was then advised to come to the emergency room for evaluation as her bone doctor is out of town. Patient denies pain. She denies fevers or chills. She denies numbness weakness or tingling in the extremity. The patient states that she has good range of motion of the pain. Her family member is at bedside who says that her knee and leg are much better than they have been before. Past Medical History - Provider Review Nursing Documentation Reviewed: Yes - Travel History Have you recently traveled outside [place] w/in the past 3 mons?: No - Infectious Disease Hx of Infectious Diseases: None - Cardiac Hx Cardiac Disorders: No - Pulmonary Hx Respiratory Disorders: No - Neurological Hx Neurological Disorder: No - HEENT Hx HEENT Disorder: No Hx Blind: No Hx Cataracts: No Hx Deafness: No Hx Difficulty Chewing: No Hx Epistaxis: No Hx Glaucoma: No Hx Macular Degeneration: No Hx Sinusitis: No - Renal Hx Renal Disorder: No Hx Dialysis: No - Endocrine/Metabolic Hx Endocrine Disorders: No - Hematological/Oncological Hx Blood Disorders: Yes Hx Anemia: Yes - Integumentary Hx Dermatological Disorder: No - Musculoskeletal/Rheumatological Hx Musculoskeletal Disorders: Yes Hx Arthritis: Yes (severe) Other/Comment: DVT - Gastrointestinal Hx Gastrointestinal Disorders: No - Genitourinary/Gynecological Hx Genitourinary Disorders: No - Psychiatric Hx Psychophysiologic Disorder: No Hx Substance Use: No - Surgical History Hx Joint Replacement: Yes - Anesthesia Hx Anesthesia: Yes - Suicidal Assessment Feels Threatened In Home Enviroment: No Family/Social History - Physician Review Nursing Documentation Reviewed: Yes Family/Social History: Unknown Family HX Smoking Status: Never Smoked Hx Alcohol Use: Yes (SOCIALLY) Hx Substance Use: No Allergies/Home Meds Allergies/Adverse Reactions: Allergies oxycodone [From Percocet] Allergy (Intermediate, Verified 09/15/18 16:56) ITCHING Patient allergic neal Percocet Home Medications: Home Meds Medication Instructions Recorded Confirmed Amoxicillin 1 tab PO BID 09/15/18 09/15/18 Review of Systems - Review of Systems Constitutional: absent: Fatigue, Fevers Respiratory: absent: SOB, Cough Cardiovascular: absent: Chest Pain, Palpitations Gastrointestinal: absent: Abdominal Pain, Vomiting Musculoskeletal: absent: Arthralgias, Back Pain, Neck Pain Skin: Rash Neurological: absent: Headache, Dizziness Psychiatric: absent: Anxiety, Depression, Suicidal Ideation Physical Exam Vital Signs Reviewed: Yes Vital Signs Temp Pulse Resp BP Pulse Ox 09/15/18 16:56 98.6 F 94 H 16 124/85 96 Temperature: Afebrile Blood Pressure: Normal Pulse: Regular Respiratory Rate: Normal Appearance: Positive for: Well-Appearing, Non-Toxic, Comfortable Pain Distress: None Mental Status: Positive for: Alert and Oriented X 3 - Systems Exam Head: Present: Atraumatic Mouth: Present: Moist Mucous Membranes Respiratory/Chest: Present: Clear to Auscultation Cardiovascular: Present: Regular Rate and Rhythm Upper Extremity: Present: Normal Inspection Lower Extremity: Present: Normal ROM, Swelling, Erythema (right knee there is minimal erythema along the healing scar; non tender; no purulent discharge. no surrounding erythema; multiple scabs noted along the linear scar.). No: Tenderness Neurological: Present: GCS=15, Speech Normal Skin: Present: Warm, Dry, Normal Color Psychiatric: Present: Alert, Oriented x 3 Medical Decision Making ED Course and Treatment: 09/15/18 19:24 pt seen and evaluated by dr. breen. pt is non toxic well appearing; no distress. stable vitals. Patient with some slight erythema along the healing scar of the right knee. Nontender. Full range of motion of the knee. No surrounding erythema. No purulent discharge. No calf tenderness. Case was discussed with Dr. Harris in depth. We will place the patient on Bactrim and Keflex and have the patient follow-up in his office on Thursday morning in a.m. The patient was given strict instructions to return immediately if she develops any pain in the leg if she develops any difficulty with range of motion of the knee or if she develops worsening erythema Or purulent discharge. Patient and her family member verbalized understanding of discharge instructions and need for immediate follow-up and immediate return if any concerning symptoms develop All aspects of this case were discussed the attending of record. Impression: Cellulitis, knee Bactrim 1 tablet twice daily x 7 days Keflex 1 capsule 4 times daily x7 days Follow-up with Dr. Harris in the office on Thursday And follow-up with the primary care physician within the next 2 days Return immediately if symptoms worsen persist or if new concerning symptoms develop: High fevers, pain, increasing redness, increasing swelling, purulent discharge. - Medication Orders Current Medication Orders: Discontinued Medications Cephalexin Monohydrate (Keflex) 500 mg PO STAT STA; Protocol Stop: 09/15/18 18:00 Trimethoprim/Sulfamethoxazole (Bactrim Ds Tab) 1 tab PO STAT STA; Protocol Stop: 09/15/18 18:00 Disposition/Present on Arrival - Present on Arrival Any Indicators Present on Arrival: No History of DVT/PE: No History of Uncontrolled Diabetes: No Urinary Catheter: No History of Decub. Ulcer: No History Surgical Site Infection Following: None - Disposition Have Diagnosis and Disposition been Completed?: Yes Diagnosis: Cellulitis of knee Disposition: HOME/ ROUTINE Disposition Time: 18:14 Patient Plan: Discharge Patient Problems: Current Active Problems Problem Status Onset Cellulitis of knee Acute Condition: GOOD Discharge Instructions (ExitCare): Cellulitis (ED) Additional Instructions: Bactrim 1 tablet twice daily x 7 days Keflex 1 capsule 4 times daily x7 days Follow-up with Dr. Harris in the office on Thursday And follow-up with the primary care physician within the next 2 days Return immediately if symptoms worsen persist or if new concerning symptoms develop: High fevers, pain, increasing redness, increasing swelling, purulent discharge Prescriptions: Cephalexin [Keflex] 500 mg PO QID #28 capsule Sulfamethoxazole/Trimethoprim [Bactrim DS 800 mg-160 mg] 1 tab PO BID #14 tab Referrals: Silviano Kerr MD [Family Provider] - Follow up with primary Krishan Harris DO [Staff Provider] - Follow up with primary Forms: [id number] (Cuban)
[2018-09-15 18:31] VITALS: BP 122/75; PULSE 89; RESP 18; O2SAT 98
== END 2018-09-15 19:12 | disposition home or self-care (01) ==
LOC: ED 16:36
DX: L03.115 Cellulitis of right lower limb (principal)